=== PATIENT | female | born 1955 | race Caucasian/White ===

== ENCOUNTER → 2020-02-16 13:00 | Outpatient (CLI) | payer BC, SELFPAY ==
--- NOTE | ~2020-02-16 | CT_ITS ---
EXAMINATION: CT chest wo con DATE: 02/16/2020 13:16 INDICATION: Urinary Nodule no follow-up TECHNIQUE: Computed tomography (CT) of the chest was performed without intravenous contrast. The dose -length product was 305.70 mGy-cm. Automated exposure control and iterative reconstruction technique were employed. COMPARISON: None FINDINGS: Heart size normal. Moderate size hiatal hernia. There is a complex predominantly hypodense 2.7 cm left thyroid mass recommend correlation with ultrasound. There are thyroid calcifications. No thoracic lymphadenopathy. No significant pleural or pericardial effusion. There are gallstones. No fo abdirizak airspace consolidation. There is a 6 mm left lower lobe nodule. There is a sclerotic lesion of th e right humeral head, likely benign bone island. Mild thoracic spondylosis. IMPRESSION: 1. Left lower lobe nodule measuring 6 mm, probably benign. Follow-up low dose CT in 6 months recommen ded. 2: Complex hypodense 2.7 cm left thyroid mass. Correlation with ultrasound recommended. 3: Cholelithiasis. 4: Moderate size hiatal hernia. Reviewed, dictated and finalized at location A. IMPRESSION: 1. Left lower lobe nodule measuring 6 mm, probably benign. Follow-up low dose C T in 6 months recommended. 2: Complex hypodense 2.7 cm left thyroid mass. Correlation with ultrasound yulissa mmended. 3: Cholelithiasis. 4: Moderate size hiatal hernia.
== END ==
PROVIDERS: PCP Family Medicine; Visit Provider Physician Assistant
DX: R91.1 Solitary pulmonary nodule (principal); E07.9 Disorder of thyroid, unspecified; K80.20 Calculus of gallbladder without cholecystitis without obstruction; K44.9 Diaphragmatic hernia without obstruction or gangrene
CPT/HCPCS: 71250

== ENCOUNTER → 2020-02-19 14:25 | Outpatient (CLI) | payer BC, SELFPAY ==
--- NOTE | ~2020-02-19 | US_ITS ---
EXAMINATION: US thyroid DATE: 02/19/2020 14:56 INDICATION: Disorder of thyroid, unspecified. TECHNIQUE: Multiple ultrasound images of the thyroid were obtained. COMPARISON: Chest CT 02/16/2020 FINDINGS: The right thyroid lobe measures 5.0 x 1.2 x 1.4 cm. The left thyroid lobe measures 4.1 x 1.4 x 1.4 c m. Inferior to left thyroid lobe, there is a 3.9 x 2.9 x 2.4 cm predominantly solid hypoechoic mass. The CT demonstrates areas of calcification. IMPRESSION: 1. 3.9 cm mass inferior to left thyroid lobe that is most likely a thyroid nodule. Ultrasound-guided fine-needle aspiration is recommended. Reviewed, dictated and finalized at location A. IMPRESSION: 1. 3.9 cm mass inferior to left thyroid lobe that is most likely a thyroid nodu le. Ultrasound-guided fine-needle aspiration is recommended.
== END ==
PROVIDERS: PCP Family Medicine; Visit Provider Physician Assistant
DX: E07.9 Disorder of thyroid, unspecified (principal)
CPT/HCPCS: 76536

== ENCOUNTER 2020-03-15 13:00 | Outpatient (CLI) | payer BC, SELFPAY ==
--- NOTE | ~2020-03-15 | US_ITS ---
EXAMINATION: US FNA w image guidance DATE: 03/15/2020 14:11 INDICATION: Nontoxic single thyroid nodule. TECHNIQUE: The procedure and its benefits, risks, and benefits were discussed with the patient. Risks specifical ly discussed included bleeding. The patient verbalized understanding of the risks and agreed to proce ed. The neck was prepped and draped in the usual sterile manner. 1% lidocaine was used for local ane sthesia. 5 passes were made with a 25G needle into the lesion. Appropriate needle location was docu mented with continuous sonographic guidance. There were no immediate complications. The patient unde rstood to call the ordering physician for results after a week and a half and verbalized that underst anding. FINDINGS: Grayscale ultrasound images demonstrate needles advanced into a 3.9 cm left thyroid nodule for biopsy . IMPRESSION: 1. Ultrasound-guided fine needle aspiration of a left thyroid nodule. Reviewed, dictated and finalized at location A. 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
== END 2020-03-15 13:01 | disposition home or self-care (01) ==
PROVIDERS: PCP Family Medicine; Visit Provider Physician Assistant
DX: E04.1 Nontoxic single thyroid nodule (principal)
CPT/HCPCS: 10005; 88173; 88305

== ENCOUNTER 2020-06-27 10:29 | Outpatient (CLI) | payer BC, SELFPAY | END 2020-06-27 10:30 | disposition home or self-care (01) | LOC: ANHCOVIDVC 10:29 | PROVIDERS: PCP Family Medicine | DX: Z23 Encounter for immunization (principal) | CPT/HCPCS: 0001A; 91300 ==

== ENCOUNTER 2020-07-18 10:30 | Outpatient (CLI) | payer BC, SELFPAY | END 2020-07-18 10:31 | disposition home or self-care (01) | LOC: ANHCOVIDVC 10:30 | PROVIDERS: PCP Family Medicine | DX: Z23 Encounter for immunization (principal) | CPT/HCPCS: 0002A; 91300 ==

== ENCOUNTER → 2020-10-18 14:26 | Outpatient (CLI) | payer BC, SELFPAY ==
--- NOTE | ~2020-10-18 | MR_ITS ---
EXAMINATION: MR knee LT wo con DATE: 10/18/2020 15:54 INDICATION: Left knee pain TECHNIQUE: Magnetic resonance imaging (MRI) of the left knee was performed without intravenous contra st. Sequences included coronal PD-weighted FSE, coronal PD-weighted FS FSE, sagittal T2-weighted FSE , sagittal PD-weighted FS FSE and axial PD weighted fat saturated FSE. COMPARISON: 02/15/2020 FINDINGS: Medial compartment: There is fraying along the inner free edge of the anterior and posterior horns of the medial meniscus . Partial-thickness chondral ulceration with relatively smooth chondral surface along the anterior to central weightbearing medial femoral condyle. Cartilage along the medial tibial plateau is relativel y preserved. Small marginal osteophytes are present. Lateral compartment: Lateral meniscus is normal. Articular cartilage is normal. Patellofemoral compartment: Additional chondral ulceration involving greater than 50% the cartilage thickness at the medial correa lar facet, patellar apical ridge and medial side of the lateral facet. There is underlying mild subar ticular edema at the superomedial aspect of the lateral facet. Trochlear cartilage is relatively pres erved. Small marginal osteophytes. Ligaments and tendons: Anterior and posterior cruciate ligaments are normal. The medial collateral ligament and fibular gela ateral ligament complex are normal. Mild distal quadriceps and proximal patellar tendinopathy. Small enthesophytes at the patellar insertion of the distal quadriceps tendon. The visualized medial and la teral hamstring tendons as well as the iliotibial band are normal. Fluid: Minimal left knee joint effusion at the suprapatellar pouch. No loose osteochondral bodies identified . Small Garcia's cyst measuring 5.5 cm in craniocaudal length and up to 1.4 x 0.7 cm in maximal transa xial dimensions. Osseous/other: There is mild red marrow reexpansion the distal metadiaphyseal region of the distal femur and proxima l tibia. No fracture or pathologic marrow replacing process. IMPRESSION: 1. Mild fraying along the inner free edge of the anterior and posterior horns of the medial meniscus. 2. 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 3. Mild tendinopathy at the patellar insertions of the distal quadriceps and proximal patellar tendon s. 4. Small Garcia's cyst. Reviewed, dictated and finalized at location A. IMPRESSION: 1. Mild fraying along the inner free edge of the anterior and posterior horns o f the medial meniscus. 2. Mild medial and patellofemoral osteoarthritis with moderate grade chondromal acia at the former and moderate to high-grade chondromalacia at the latter. 3. Mild tendinopathy at the patellar insertions of the distal quadriceps and pr oximal patellar tendons. 4. Small Garcia's cyst.
== END ==
PROVIDERS: PCP Family Medicine; Visit Provider Orthopaedic Surgery
DX: M25.562 Pain in left knee (principal); M17.12 Unilateral primary osteoarthritis, left knee; M22.42 Chondromalacia patellae, left knee; M23.312 Other meniscus derangements, anterior horn of medial meniscus, left knee; M76.52 Patellar tendinitis, left knee; M71.22 Synovial cyst of popliteal space [Baker], left knee
CPT/HCPCS: 73721

== ENCOUNTER 2020-11-23 10:25 | Outpatient (CLI) | payer BC, SELFPAY ==
--- NOTE | 2020-11-23 10:29 | ECG_ITS ---
Measurements Intervals [place] Rate: 72 P: 14 TN: 144 QRS: 15 QRSD: 90 T: 19 QT: 394 QTc: 432 Interpretive Statements SINUS RHYTHM NORMAL ECG Electronically Signed On 11-23-2020 10:50:48 CDT by Akhil Díaz D.O.
[2020-11-23 11:21] LABS: Anion Gap 10 mmol/L (8-16); Blood Urea Nitrogen 8 mg/dL (7-17); Carbon Dioxide 26 mmol/L (22-30); Chloride 100 mmol/L (98-107); Estimated Glomerular Filt Rate > 60; Glucose 238 mg/dL (65-110); Sodium 136 mmol/L (137-145)
== END 2020-11-23 10:26 | disposition home or self-care (01) ==
LOC: ANHSURGERY 10:29
PROVIDERS: Anesthesiology; PCP Family Medicine; Visit Provider Orthopaedic Surgery
DX: Z01.818 Encounter for other preprocedural examination (principal); E11.9 Type 2 diabetes mellitus without complications
CPT/HCPCS: 36415; 80048; 93005

== ENCOUNTER 2020-11-25 01:55 | Day surgery (SDC) | payer BC, SELFPAY ==
[2020-11-21 14:57] VITALS: BMI 31.1
[2020-11-25] VITALS (8 sets, daily range): BP systolic 114–139; BP diastolic 63–73; PULSE 74–100; RESP 14–20; TEMP 36.5–37.2; O2SAT 93–100
--- NOTE | 2020-11-25 07:27 | WPDHPUPDATE1 ---
History and Physical Update Update Date/Time: 11/25/20 07:27 History and Physical has been reviewed, including an updated exam of the patient. There are NO changes in the patient's condition. Risks, benefits, and alternatives have been discussed and questions answered. Patient agrees to proceed with procedure.
--- NOTE | 2020-11-25 08:31 | WPDANESEPPF ---
Anes - Initial Pre Proc Eval Procedure: Operation Date: 11/25/20 11:30 Proposed Procedures p Left Knee Arthroscopy, Medial Meniscectomy, Proceed As Indicated - Jd Santos MD Date/Time: 11/25/20 08:31 Surgeon: Jd Santos MD Pre Op Diagnosis: medial meniscus tear left knee Patient Data Age: 65 Gender: F Height: 1.65 m Weight: 85 kg Allergies Allergy/AdvReac Type Severity Reaction Status Date / Time No Known Allergies Allergy Verified 11/25/20 09:52 Home Medications Medication Instructions Recorded Confirmed Type multivitamin 1 cap PO DAILY 04/13/19 11/25/20 History omeprazole 20 mg capsule,delayed 20 mg PO DAILY 04/13/19 11/25/20 History release ascorbate calcium-bioflavonoid 1 tablet PO AC 05/04/19 11/25/20 History [Isabel-C with Bioflavonoids] aspirin 81 mg PO DAILY 05/04/19 11/25/20 History blood-glucose meter #1 ea 02/11/20 11/25/20 Rx atorvastatin 20 mg tablet 20 mg PO DAILY #90 tablet 05/13/20 11/25/20 Rx metformin 500 mg tablet,extended 1,000 mg PO BID #180 tablet 05/13/20 11/25/20 Rx release 24 hr trazodone 100 mg tablet 200 mg PO HS #180 tablet 05/13/20 11/25/20 Rx venlafaxine 150 mg 150 mg PO DAILY #90 cap 05/13/20 11/25/20 Rx capsule,extended release 24 hr lisinopril 10 1 tablet PO DAILY #30 tablet 06/09/20 11/25/20 Rx mg-hydrochlorothiazide 12.5 mg tablet dulaglutide 1.5 mg/0.5 mL 1.5 mg SUBCUT WEEKLY 90 Days #6.5 10/10/20 11/25/20 Rx subcutaneous pen injector ml magnesium 200 mg tablet 400 mg PO BID tablet 10/10/20 11/25/20 History pen needle, diabetic 32 gauge x #100 ea 10/10/20 11/25/20 Rx /32 blood sugar diagnostic #300 ea 10/25/20 11/25/20 Rx insulin glargine U-300 conc 18 unit SUBCUT QHS 11/21/20 11/25/20 History [Toujeo Max U-300 SoloStar] Patient hx anesthesia problems: none Family hx anesthesia problems: none [facility] Past Medical History Medical History Arthritis Depression Diabetes GERD (gastroesophageal reflux disease) H/O: HTN (hypertension) Hearing loss Hernia (~2017) High cholesterol HTN (hypertension) Obesity Type 2 diabetes mellitus Vision loss Surgical History Surgical History H/O hemorrhoidectomy H/O hernia repair H/O lateral meniscus repair of left knee H/O lateral meniscus repair of right knee H/O: hysterectomy History of delivery History of foot surgery right foot History of hand surgery right foot Hx of laparoscopic gastric banding Family History Family History Father Family history of elevated blood lipids Family history of heart disease in male family member before age 55 Family history of cardiovascular disease Family history of arthritis Sibling Family history of malignant neoplasm Family history of malignant neoplasm of breast in first degree relative Family history of obesity Mother Family history of atrial fibrillation Family history of malignant neoplasm of breast in first degree relative Family history of osteoarthritis Unknown Diabetes mellitus Heart disease Hypertension Cancer Grandparent Cerebrovascular accident Other Family history of juvenile rheumatoid arthritis Social History Social History Smoking status: Former smoker Smoking end date: 04/22/00 Additional smoking assessment comments: smoked 7 years ,recreational cigarette smoker Alcohol intake: current Alcohol use details: social Living arrangements: with family 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
[2020-11-25] MEDS: ACETAMINOPHEN 500 MG TABLET 1000 MG PO (10:07)
[2020-11-25] MEDS: KETOROLAC 15 MG/ML VIAL (*BKC) IV PUSH (10:11)
[2020-11-25] MEDS: LACTATED RINGERS 1,000 ML 30 ML IV CONT ×2 (10:11→12:20)
[2020-11-25 10:17] LABS: Glucose Point of Care 262 mg/dl (65-105)
[2020-11-25] MEDS: ceFAZolin 2 GM/D5W 50 ML 2 GM/50 ML BAG IVPB (11:19)
[2020-11-25] MEDS: BUPIVACAINE/EPINEPHRINE 0.5% 30 ML VIAL INFILTRATE (11:38)
--- NOTE | 2020-11-25 12:28 | W.PM.PROC2 ---
Procedure Note - Detailed Date of Procedure 11/25/20 Pre-op Diagnosis Medial meniscus tear left knee Post-op Diagnosis same Procedure Performed Arthroscopic partial medial meniscectomy, left knee. Surgeon Jd Santos MD Senior Branch Manager Antoinette Schmitz PA-C Anesthesia general Findings Complex medial meniscus tear. Good remaining tissue. Grade 2 chondromalacia femur and tibia medially. Grade 2 patella. Grade 1 trochlea. Lateral compartment normal. ACL intact. Description of Procedure The patient was identified and the surgical site confirmed and signed in the preoperative holding area. Antibiotics were started per protocol. She was brought to the operative room and transferred to the OR table. A general anesthetic was administered. Supine position with the operative lower extremity position in the leg cai after placement of a well padded tourniquet. The leg support was lowered and the contralateral limb was supported with a soft bolster. The knee was prepped and draped in the usual sterile fashion. A time-out was performed. The portal sites were marked and infiltrated with 0.5% Marcaine 20 mL. The limb was exsanguinated and the tourniquet inflated to 300 mL Hg. Standard inferolateral and inferomedial portals were established. Inflow was obtained with the saline pump. The camera was introduced. Diagnostic inspection of the joint was accomplished. The meniscus was debrided with the arthroscopic shaver and punches until stable. The arthroscopic instruments were removed. The tourniquet released and wounds closed with subcutaneous 3-0 Monocryl absorbable suture. Steri strips and a sterile dressing were applied. A light elastic wrap was placed. The patient was extubated and brought to the recovery room in stable condition. Estimated Blood Loss -5.0 Tourniquet Time 25 Drains No Complications No immediate complications Condition stable Disposition PACU
[2020-11-25 12:33] LABS: Glucose Point of Care 203 mg/dl (65-105)
== END 2020-11-25 14:14 | disposition home or self-care (01) ==
PROVIDERS: PCP Family Medicine; Visit Provider Orthopaedic Surgery
PROC: (CPT 29870; principal; 2020-11-25 11:30)
DX: M23.332 Other meniscus derangements, other medial meniscus, left knee (principal); M94.262 Chondromalacia, left knee; E11.9 Type 2 diabetes mellitus without complications; I10 Essential (primary) hypertension; E78.00 Pure hypercholesterolemia, unspecified; K21.9 Gastro-esophageal reflux disease without esophagitis; F32.9 Major depressive disorder, single episode, unspecified; Z87.891 Personal history of nicotine dependence; E66.9 Obesity, unspecified; Z68.32 Body mass index [BMI] 32.0-32.9, adult; Z79.84 Long term (current) use of oral hypoglycemic drugs; Z79.82 Long term (current) use of aspirin; Z79.4 Long term (current) use of insulin
CPT/HCPCS: 29881; 82948; A9270; J0690; J1100; J1885; J2250; J2405; J2704; J3010; J7120

== ENCOUNTER → 2021-04-03 12:53 | Outpatient (CLI) | payer BC, SELFPAY ==
--- NOTE | ~2021-04-03 | CT_ITS ---
EXAMINATION: CT diagnostic chest wo con DATE: 04/03/2021 13:45 INDICATION: Solitary pulmonary nodule follow-up TECHNIQUE: Computed tomography (CT) of the chest was performed without intravenous contrast. The dose -length product was 615.65 mGy-cm. Automated exposure control and iterative reconstruction technique were employed. COMPARISON: CT dated 02/16/2020 FINDINGS: No thoracic lymphadenopathy. Heart size normal. Moderate size hiatal hernia. No significant pleural or pericardial effusion. No significant change to appearance of left thyroid mass with heter ogeneous appearance and peripheral calcifications measuring up to 2.8 cm. This was previously biopsy- proven benign. Visualized aspects of the upper abdomen are unremarkable. Stable 6 mm left lower lobe nodule, image 73. No endobronchial lesions. There is a 2 mm right lower lobe nodule, image 62. Mild t horacic spondylosis. No focal lytic or blastic lesions. IMPRESSION: 1. Probable benign appearing lung nodules, largest in the left lower lobe measuring 6 mm without sign ificant change, likely benign. Follow-up low dose CT chest in 12 months recommended. 2: Moderate size hiatal hernia. Reviewed, dictated and finalized at location A. 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 Probable benign appearing lung nodules, largest in the left lower lobe measu ring 6 mm without significant change, likely benign. Follow-up low dose CT ches t in 12 months recommended. 2: Moderate size hiatal hernia.
== END ==
PROVIDERS: PCP Family Medicine; Visit Provider Physician Assistant
DX: R91.1 Solitary pulmonary nodule (principal); K44.9 Diaphragmatic hernia without obstruction or gangrene
CPT/HCPCS: 71250

== ENCOUNTER → 2021-04-07 14:30 | Outpatient (CLI) | payer BC, SELFPAY ==
--- NOTE | ~2021-04-07 | MM_ITS ---
EXAMINATION: MM screening [facility] BI w kylie HISTORY: Screening TECHNIQUE: Craniocaudal and mediolateral oblique 3-D tomosynthesis images were obtained and synthetic 2-D images were generated. CAD analysis was submitted and interpreted. COMPARISON: No prior mammogram is available for comparison at this institution. BREAST PARENCHYMAL COMPOSITION: Breast composed of scattered areas of fibroglandular density. FINDINGS: There is no evidence of suspicious mass, calcification, or architectural distortion to sugg est malignancy in either breast. There has been no suspicious interval change. IMPRESSION: 1. No mammographic evidence of malignancy. 2. Recommend routine screening mammography in one year. BI-RADS Category 1: Negative Reviewed, dictated and finalized at location A. STOP CHECKER
== END ==
PROVIDERS: Visit Provider Family Medicine
DX: Z12.31 Encounter for screening mammogram for malignant neoplasm of breast (principal)
CPT/HCPCS: 77063; 77067

== ENCOUNTER 2021-08-11 01:12 | Day surgery (SDC) | payer BC, MEDICARE, SELFPAY ==
[2021-08-11 07:50] VITALS: BMI 32.2
[2021-08-11] MEDS: LACTATED RINGERS 1,000 ML 150 ML IV CONT (08:11)
--- NOTE | 2021-08-11 08:12 | WPDGICN ---
Assessment and Plan Assessment and plan (1) History of colon polyps: Code(s): Z86.010 - Personal history of colonic polyps Status: Acute Assessment and Plan: Patient has history of adenomatous colon polyp removed from the colon and 1017. Plan is for surveillance colonoscopy now and at intervals in the future. Further recommendations will be given after endoscopy. GI Consult Note Consult date/time: 08/11/21 08:12 HPI: Avelina Kemp is a 66 year old female Presents for screening colonoscopy. Patient has a history of adenomatous colon polyps at the time of last colonoscopy 2016. Patient presents today for screening colonoscopy she reports that her current weight appetite bowel movements are normal. Patient denies abdominal pain. She has had no bleeding. Family history is noncontributory. Review of Systems Review of Systems: All systems reviewed & are unremarkable except as noted in HPI and below PMFSH Past Medical History Medical History (Updated 08/11/21 @ 08:13 by Forrest Turner MD) Arthritis Depression Diabetes GERD (gastroesophageal reflux disease) H/O: HTN (hypertension) Hearing loss Hernia (~2016) High cholesterol HTN (hypertension) Obesity Type 2 diabetes mellitus Vision loss Surgical History Surgical History H/O hemorrhoidectomy H/O hernia repair H/O lateral meniscus repair of left knee H/O lateral meniscus repair of right knee H/O: hysterectomy History of delivery History of foot surgery right foot History of hand surgery right foot History of meniscectomy of left knee (~11/25/20) Medial (Arthroscopic) Hx of laparoscopic gastric banding Family History Family History Father Family history of elevated blood lipids Family history of heart disease in male family member before age 55 Family history of cardiovascular disease Family history of arthritis Sibling Family history of malignant neoplasm Family history of malignant neoplasm of breast in first degree relative Family history of obesity Mother Family history of atrial fibrillation Family history of malignant neoplasm of breast in first degree relative Family history of osteoarthritis Unknown Diabetes mellitus Heart disease Hypertension Cancer Grandparent Cerebrovascular accident Other Family history of juvenile rheumatoid arthritis Social History Social History Years smoked: 5 Smoking status: Former smoker Tobacco type: cigarettes Smoking end date: 04/22/00 Additional smoking assessment comments: smoked 7 years ,recreational cigarette smoker Alcohol intake: never Alcohol use details: social Substance use: never Substance use type: does not use Living arrangements: with family 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 Gender identity (if verbalized by the patient): Female Spiritual care concerns: No Meds Home Medications and Allergies Home Medications Medication Instructions Recorded Confirmed Type multivitamin 1 cap PO DAILY 04/13/19 08/11/21 History omeprazole 20 mg capsule,delayed 20 mg PO DAILY 04/13/19 08/11/21 History release magnesium 200 mg tablet 400 mg PO BID tablet 10/10/20 08/11/21 History pen needle, diabetic 32 gauge x #100 ea 10/10/20 08/11/21 Rx blood sugar diagnostic #300 ea 10/25/20 08/11/21 Rx atorvastatin 20 mg tablet 20 mg PO DAILY #90 tablet 03/20/21 08/11/21 Rx lisinopril 10 1 tablet PO DAILY #90 tablet 03/20/21 08/11/21 Rx mg-hydrochlorothiazide 12.5 mg tablet venlafaxine 150 mg 150 mg PO DAILY #90 cap 03/20/21 08/11/21 Rx capsule,extended release 24 hr metformin 500 mg tablet,extended 1,000 mg PO BID #360 tablet 04/11/21 08/11/21 Rx release 24 hr dulaglutide 3 mg/0.5 mL 3 mg SUBCUT WEEKLY 90 Days #6.5 ml 05/03/2107/22
[2021-08-11 08:14] LABS: Glucose Point of Care 217 mg/dl (65-105)
--- NOTE | 2021-08-11 08:42 | WPDANESEPPF ---
Anes - Initial Pre Proc Eval Procedure: Operation Date: 08/11/21 09:00 Proposed Procedures p Screening Colonoscopy - Forrest Turner MD Date/Time: 08/11/21 08:42 Surgeon: Forrest Turner MD Pre Op Diagnosis: hx of colon polyps Patient Data Age: 66 Gender: F Height: 1.68 m Weight: 90.6 kg Allergies Allergy/AdvReac Type Severity Reaction Status Date / Time No Known Allergies Allergy Verified 08/11/21 08:01 Home Medications Medication Instructions Recorded Confirmed Type multivitamin 1 cap PO DAILY 04/13/19 08/11/21 History omeprazole 20 mg capsule,delayed 20 mg PO DAILY 04/13/19 08/11/21 History release magnesium 200 mg tablet 400 mg PO BID tablet 10/10/20 08/11/21 History pen needle, diabetic 32 gauge x #100 ea 10/10/20 08/11/21 Rx /32 blood sugar diagnostic #300 ea 10/25/20 08/11/21 Rx atorvastatin 20 mg tablet 20 mg PO DAILY #90 tablet 03/20/21 08/11/21 Rx lisinopril 10 1 tablet PO DAILY #90 tablet 03/20/21 08/11/21 Rx mg-hydrochlorothiazide 12.5 mg tablet venlafaxine 150 mg 150 mg PO DAILY #90 cap 03/20/21 08/11/21 Rx capsule,extended release 24 hr metformin 500 mg tablet,extended 1,000 mg PO BID #360 tablet 04/11/21 08/11/21 Rx release 24 hr dulaglutide 3 mg/0.5 mL 3 mg SUBCUT WEEKLY 90 Days #6.5 ml 05/03/21 08/11/21 Rx subcutaneous pen injector insulin glargine U-300 conc 300 18 unit SUBCUT QHS 90 Days #5.4 ml 05/03/21 08/11/21 Rx unit/mL (3 mL) subcutaneous pen glipizide 5 mg tablet, extended 5 mg PO BID 90 Days #180 tablet 06/29/21 08/11/21 Rx release 24 hr trazodone 100 mg tablet 200 mg PO HS #180 tablet 06/30/21 08/11/21 Rx azithromycin 250 mg tablet See Rx Instructions PO .COMPLEX #6 08/03/21 08/11/21 Rx tablet Laboratory Tests 08/11/21 08:07 POC Capillary Glucose 217 mg/dl H mg/dl (65-105) Patient hx anesthesia problems: none Family hx anesthesia problems: none Results Review: All pre-operative results and documents have been reviewed as part of the pre-operative evaluation. [facility] Past Medical History Medical History (Updated 08/11/21 @ 08:13 by Forrest Turner MD) Arthritis Depression Diabetes GERD (gastroesophageal reflux disease) H/O: HTN (hypertension) Hearing loss Hernia (~2017) High cholesterol HTN (hypertension) Obesity Type 2 diabetes mellitus Vision loss Surgical History Surgical History H/O hemorrhoidectomy H/O hernia repair H/O lateral meniscus repair of left knee H/O lateral meniscus repair of right knee H/O: hysterectomy History of delivery History of foot surgery right foot History of hand surgery right foot History of meniscectomy of left knee (~11/25/20) Medial (Arthroscopic) Hx of laparoscopic gastric banding Family History Family History Father Family history of elevated blood lipids Family history of heart disease in male family member before age 55 Family history of cardiovascular disease Family history of arthritis Sibling Family history of malignant neoplasm Family history of malignant neoplasm of breast in first degree relative Family history of obesity Mother Family history of atrial fibrillation Family history of malignant neoplasm of breast in first degree relative Family history of osteoarthritis Unknown Diabetes mellitus Heart disease Hypertension Cancer Grandparent Cerebrovascular accident Other Family history of juvenile rheumatoid arthritis Social History Social History Years smoked: 5 Smoking status: Former smoker Tobacco type: cigarettes Smoking end date: 04/22/00 Additional smoking assessment comments: smoked 7 years ,recreational cigarette smoker Alcohol intake: never Alcohol use details: social Substance use: never Substance use type: does not use Living a
[2021-08-11 09:09] VITALS: BP 123/62; PULSE 88; RESP 24; O2SAT 97
[2021-08-11 09:19] VITALS: BP 134/69; PULSE 83; RESP 25; O2SAT 97
[2021-08-11 09:28] LABS: Glucose Point of Care 172 mg/dl (65-105)
[2021-08-11 09:29] VITALS: BP 123/58; PULSE 79; RESP 21; O2SAT 97
== END 2021-08-11 09:32 | disposition home or self-care (01) ==
PROVIDERS: PCP Family Medicine; Visit Provider Internal Medicine Gastroenterology
PROC: 0DJD8ZZ Inspection of Lower Intestinal Tract, Via Natural or Artificial Opening Endoscopic (ICD-10-PCS; CPT 45378; principal; 2021-08-11 09:00)
DX: Z12.11 Encounter for screening for malignant neoplasm of colon (principal); Z86.010 Personal history of colon polyps; K64.8 Other hemorrhoids; K57.30 Diverticulosis of large intestine without perforation or abscess without bleeding; Z79.84 Long term (current) use of oral hypoglycemic drugs; Z79.4 Long term (current) use of insulin; M19.90 Unspecified osteoarthritis, unspecified site; I10 Essential (primary) hypertension; K21.9 Gastro-esophageal reflux disease without esophagitis; E78.00 Pure hypercholesterolemia, unspecified; E11.9 Type 2 diabetes mellitus without complications; F32.9 Major depressive disorder, single episode, unspecified; Z87.891 Personal history of nicotine dependence; E66.9 Obesity, unspecified; Z68.32 Body mass index [BMI] 32.0-32.9, adult
CPT/HCPCS: 45378; 82948; J2704; J7120

== ENCOUNTER → 2021-10-13 15:33 | Outpatient (CLI) | payer BC, SELFPAY ==
--- NOTE | ~2021-10-13 | US_ITS ---
EXAMINATION: US thyroid DATE: 10/13/2021 15:53 INDICATION: Thyroid nodule. History of prior negative FNA. TECHNIQUE: Multiple ultrasound images of the thyroid were obtained. COMPARISON: 02/19/2020, CT chest 04/03/2021. FINDINGS: The right thyroid lobe measures 3.6 x 0.8 x 1.1 cm. The left thyroid lobe measures 4.2 x 1.5 x 1.2 c m. There is normal echotexture and echogenicity throughout the thyroid gland. Sub-5 mm cystic right lobe nodule, requires no additional follow-up or FNA. 3 cm left inferior lobe mixed cystic and solid hypoechoic nodule, with ill-defined margins, that is wider than tall, with peripheral calcifications. No significant interval size change given interval change in technique. No suspicious interval morph ologic change. Normal vascular flow is present in the thyroid gland. IMPRESSION: 1. 3 cm left inferior lobe nodule, with prior negative FNA. No concerning interval growth or suspicio us interval change. Reviewed, dictated and finalized at location K. IMPRESSION: 1. 3 cm left inferior lobe nodule, with prior negative FNA. No concerning inter nanette growth or suspicious interval change.
== END ==
PROVIDERS: PCP Nurse Practitioner Family; Visit Provider Nurse Practitioner Family
DX: E04.1 Nontoxic single thyroid nodule (principal)
CPT/HCPCS: 76536

== ENCOUNTER 2022-01-08 10:07 | Outpatient (CLI) | payer BC, SELFPAY ==
--- NOTE | 2022-01-08 11:10 | ECG_ITS ---
Measurements Intervals Cunningham Rate: 83 P: 17 IL: 133 QRS: 21 QRSD: 89 T: 23 QT: 361 QTc: 425 Interpretive Statements SINUS RHYTHM LOW QRS VOLTAGE IN PRECORDIAL LEADS CONSIDER INFERIOR INFARCT, AGE INDETERMINATE BASELINE ARTIFACT- I, II, AVR, AVL, AVF, V6 ABNORMAL ECG COMPARED TO ECG 11/23/2020 10:40:36 NO SIGNIFICANT CHANGES Electronically Signed On 01-08-2022 13:53:11 CDT by Akhil Díaz D.O.
[2022-01-08 11:35] LABS: Basophils Absolute Auto 0.1 K/mm3 (0.0-0.1); Basophils Percent Auto 0.6 % (0.2-1.2); Eosinophils Absolute Auto 0.3 K/mm3 (0-0.3); Eosinophils Percent Auto 2.2 % (0-4.4); Hematocrit 37.5 % (37.0-47.0); Hemoglobin 10.9 g/dL (12.0-15.0); Immature Granulocyte Absolute 0.06 K/mm3 (0.00-0.031); Immature Granulocyte Percent A 0.5 % (0-0.5); Lymphocytes Absolute Auto 2.87 K/mm3 (0.9-3.2); Lymphocytes Percent Auto 23.5 % (18.3-44.2); Mean Corpuscular HGB Conc 29.1 g/dl (32-36); Mean Corpuscular Hemoglobin 21.6 pg (26-34); Mean Corpuscular Volume 74.3 fl (80-100); Mean Platelet Volume 10.9 fl (7.4-10.4); Neutrophils Percent Auto 65.2 % (45.5-73.1); Platelet Count Result 276 k/mm3 (150-375); Red Blood Count 5.05 M/mm3 (4.2-5.4); Red Cell Distribution Width 19.1 % (11.5-14.5); White Blood Count 12.2 K/mm3 (4.5-10.0)
[2022-01-08 11:46] LABS: Anion Gap 15 mmol/L (8-16); Blood Urea Nitrogen 12 mg/dL (7-17); Carbon Dioxide 27 mmol/L (22-30); Chloride 97 mmol/L (98-107); Estimated Glomerular Filt Rate > 60; Glucose 199 mg/dL (65-110); Potassium 3.9 mmol/L (3.4-5.0); Sodium 139 mmol/L (137-145)
[2022-01-08 13:13] LABS: Anisocytosis 1+ (NORMAL); Hypochromasia 1+ (NORMAL); Platelet Estimate Adequate (Adequate)
== END 2022-01-08 10:08 | disposition home or self-care (01) ==
PROVIDERS: Anesthesiology; PCP Family Medicine; Visit Provider Orthopaedic Surgery
DX: Z01.818 Encounter for other preprocedural examination (principal); I10 Essential (primary) hypertension; E11.9 Type 2 diabetes mellitus without complications; M17.12 Unilateral primary osteoarthritis, left knee; R94.31 Abnormal electrocardiogram [ECG] [EKG]
CPT/HCPCS: 36415; 80048; 85025; 93005

== ENCOUNTER 2022-02-01 01:25 | Day surgery (SDC) | payer BC, SELFPAY ==
[2022-01-08 10:26] VITALS: BMI 34.4
--- NOTE | 2022-01-08 10:55 | PC.NURSE ---
Report to the Outpatient Waiting Room, entrance under the green pavilion located off [facility], at time 0600 on date __02/01/22 . OR Time: _729 . Time changes happen often and if your time is changed the preop area will call you the afternoon before. - You and your visitor will be asked to self-screen and do not enter if you have any COVID symptoms. - Only one visitor and NO children visitors are allowed at this time. - The patient visitor is requested to leave or wait in car when not with patient due to restrictions. - A mask is required within the hospital. Patients may have clear liquids (water, carbonated beverages, clear teas, apple juice) until 3 hours prior to surgery with a maximum of 20 ounces. - No food from midnight until time of surgery - Infants may have breast milk until 4 hours before surgery, formula 6 hours prior to surgery. - Children will be allowed to drink immediately following surgery. If applicable, please bring a bottle or sippy cup to assist with drinking. Juice, water, soda, and popsicles are readily available. For infants on formula, please bring formula the day of surgery. Pacifiers are allowed. Take the following medications with a SIP of water the morning of surgery: ___VENLAFAXINE Medications to discontinue per physician __ASPIRIN 7 DAYS PRE OP. ALL VITAMINS AND SUPPLEMENTS 3 DAYS PRE OP Date to take last dose_ASPIRIN 01/24/22 ALL VIT/SUPP 01/28/22 Please no make-up, nail arabic, hairspray, perfume, deodorant, or body powder the day of surgery. No jewelry (including any body piercings) or valuables the day of surgery, leave them at home. Please take a shower or bath the night before, or the morning of, surgery with an antibacterial soap. Wear comfortable, loose fitting clothing. Children are encouraged to wear pajamas. - Jewelry must be removed prior to entering the operating room. Rings and piercings that are not removed may be cut off. - The hospital will not accept responsibility for valuables. - Please leave all valuables, including medications, at home the day of surgery. If you are going home after surgery, a licensed diesel pile driver operator must drive you home. - NO public transportation without another adult. - We recommend that an adult stay with you for 24 hours following discharge. - We also recommend that you do not drive, make important decision, drink alcoholic beverages, or take any drugs that were not prescribed by your health care provider for at least 24 hours after your discharge time. For Pediatric surgeries, we recommend two adults accompany the child home (only one inside the building at this time). Follow any additional instructions given to you from your surgeon. If you or anyone in your household have experienced Covid symptoms in the past week, please notify your surgeon or the nurse liaison at the phone number below for possible testing. VERBAL AND WRITTEN instructions given to __PATIENT and asked if any additional questions and then verbalized understanding. Patient advised to call surgeon office or pre surgery nurse liaison [phone] if any additional questions.
[2022-01-08 11:10] VITALS: BP 144/67; PULSE 82; RESP 18; TEMP 37.3; O2SAT 98
[2022-02-01] VITALS (13 sets, daily range): BP systolic 104–140; BP diastolic 46–61; PULSE 72–92; RESP 14–20; TEMP 36.4–36.8; O2SAT 95–100
--- NOTE | ~2022-02-01 | XR_ITS ---
EXAMINATION: XR knee LT 2V DATE: 02/01/2022 09:50 INDICATION: Left knee arthroplasty. Postop. TECHNIQUE: 2 views of left knee were obtained. COMPARISON: Left knee radiographs 09/12/2018 FINDINGS: There is a medial compartment arthroplasty in near-anatomic alignment. No fracture. There i s mild osteoarthritis of lateral and patellofemoral compartments characterized by tiny osteophytes. N o knee joint effusion. There is gas in the soft tissues, consistent with recent surgery. IMPRESSION: 1. Medial compartment arthroplasty in near-anatomic alignment. Reviewed, dictated and finalized at location A.
[2022-02-01] MEDS: ACETAMINOPHEN 500 MG TABLET 1000 MG PO (06:31)
[2022-02-01] MEDS: TRANEXAMIC ACID 1,000MG/ISO100 1,000 MG/100 ML BAG 200 MG IVPB (07:00)
[2022-02-01 07:03] LABS: White Blood Count 10.3 K/mm3 (4.5-10.0)
[2022-02-01 07:07] LABS: Glucose Point of Care 166 mg/dl (65-105)
--- NOTE | 2022-02-01 07:09 | WPDANESEPPF ---
Anes - Initial Pre Proc Eval Procedure: Operation Date: 02/01/22 07:30 Proposed Procedures p Left Partial Knee Arthroplasty - Jd Santos MD Date/Time: 02/01/22 07:09 Surgeon: Jd Santos MD Pre Op Diagnosis: Prim O A left Knee Patient Data Age: 66 Gender: F Height: 1.6 m Weight: 88.2 kg Last Vital Signs Temp 37.3 C 01/08/22 11:10 Pulse 82 01/08/22 11:10 Resp 18 01/08/22 11:10 BP 144/67 H 01/08/22 11:10 Pulse Ox 98 01/08/22 11:10 O2 Del Method Room Air 01/08/22 11:10 Allergies Allergy/AdvReac Type Severity Reaction Status Date / Time No Known Allergies Allergy Verified 02/01/22 06:27 Home Medications Medication Instructions Recorded Confirmed Type multivitamin 1 cap PO DAILY 04/13/19 02/01/22 History magnesium 200 mg tablet 400 mg PO BID 10/10/20 02/01/22 History blood sugar diagnostic (OneTouch #300 ea 10/25/20 01/22/22 Rx Verio test strips) lisinopril 10 1 tablet PO DAILY #90 tabs 03/20/21 02/01/22 Rx mg-hydrochlorothiazide 12.5 mg tablet dulaglutide 4.5 mg/0.5 mL 4.5 mg (0.5 mL) subcut WEEKLY 90 10/10/21 02/01/22 Rx subcutaneous pen injector days #6 mL (Trulicity) trazodone 100 mg tablet 200 mg PO HS #180 tabs 11/20/21 02/01/22 Rx venlafaxine 150 mg 150 mg PO DAILY #90 caps 11/20/21 02/01/22 Rx capsule,extended release 24 hr (Effexor XR) omeprazole 20 mg capsule,delayed 20 mg PO DAILY #90 caps 12/14/21 02/01/22 Rx release aspirin 81 mg tablet,delayed 81 mg PO DAILY 01/08/22 02/01/22 History release (Adult Low Dose Aspirin) atorvastatin 20 mg tablet 20 mg PO DAILY #90 tabs 01/09/22 02/01/22 Rx clotrimazole-betamethasone 1 1 applic topical BID PRN vaginal 01/11/22 02/01/22 Rx %-0.05 % topical cream irritation 2 weeks #45 grams metformin 500 mg tablet,extended 1,000 mg PO BID #360 tabs 01/11/22 02/01/22 Rx release 24 hr pen needle, diabetic 32 gauge x #100 ea 01/11/22 01/22/22 Rx 5/32 (BD Cass 2nd Gen Pen Needle) insulin glargine U-300 conc 300 20 unit (0.0667 mL) subcut QHS #6 01/31/22 02/01/22 Rx unit/mL (3 mL) subcutaneous pen mL (Toujeo Max U-300 SoloStar) Laboratory Tests 02/01/22 02/01/22 06:26 06:58 WBC 10.3 K/mm3 H K/mm3 (4.5-10.0) POC Capillary Glucose 166 mg/dl H mg/dl (65-105) Patient hx anesthesia problems: none Family hx anesthesia problems: none Results Review: All pre-operative results and documents have been reviewed as part of the pre-operative evaluation. [facility] Past Medical History Medical History Acute medial meniscus tear of left knee Acute non-recurrent maxillary sinusitis Arthritis Body mass index (BMI) 23 or greater (11/14/18) Body mass index (BMI) 35 or more (06/23/18) Cholelithiasis Colitis Depression Diabetes Essential hypertension Fatty (change of) liver, not elsewhere classified Folliculitis GERD (gastroesophageal reflux disease) H/O: HTN (hypertension) Hearing loss Hernia (~2017) High cholesterol History of colon polyps HTN (hypertension) Hypercholesterolemia Hypokalemia Incisional hernia, without obstruction or gangrene Internal prolapsed hemorrhoids Iron deficiency anemia, unspecified Lung nodule Major depressive disorder, single episode, unspecified Obesity Postmenopausal Pulmonary nodule Thyroid nodule 11-20 biopsy aspiration benign Tinea corporis Type 2 diabetes mellitus Viral upper respiratory tract infection Vision loss Surgical History Surgical History H/O hemorrhoidectomy H/O hernia repair H/O lateral meniscus repair of left knee H/O lateral meniscus repair of right knee H/O: hysterectomy History of delivery History of foot surgery right foot History of hand surgery right foot History of meniscectomy of left knee (~11/25/20) Medial (Arthroscopic) Hx of bariatric surgery Hx of hernia re
--- NOTE | 2022-02-01 07:22 | WPDHPUPDATE1 ---
History and Physical Update Update Date/Time: 02/01/22 07:22 History and Physical has been reviewed, including an updated exam of the patient. There are NO changes in the patient's condition. Risks, benefits, and alternatives have been discussed and questions answered. Patient agrees to proceed with procedure.
[2022-02-01] MEDS: ceFAZolin 2 GM/D5W 50 ML 2 GM/50 ML BAG IVPB ×2 (07:33→16:26)
[2022-02-01] MEDS: GENTAMICIN BONE CEMENT REFOBACIN 1 EACH TOPICAL (08:06)
[2022-02-01] MEDS: LACTATED RINGERS 1,000 ML 30 ML IV CONT ×2 (09:29)
[2022-02-01 09:41] LABS: Glucose Point of Care 172 mg/dl (65-105)
[2022-02-01] MEDS: fentaNYL CITRATE INJ (*CRX) 100 MCG/2 ML VIAL 25 MCG IV PUSH ×3 (10:00→10:10)
--- NOTE | 2022-02-01 11:15 | ADMGEN ---
This patient, Avelina Kemp, was admitted to 2 Medical Room 259-. Patient/family oriented to hospital policies and general routines including ID bracelet, bed and alarms, visiting hours, pain management, procedures, bathroom and other care routines, personal items, smoking policy, room service/diet, and visiting hours. Information on how to activate the Rapid Response Team has been discussed. Patient/Family are encouraged to report perceived risks to care and to ask questions if they do not understand what they are told or what they should do.
[2022-02-01 11:29] LABS: Glucose Point of Care 217 mg/dl (65-105)
--- NOTE | 2022-02-01 13:12 | W.PM.PROC2 ---
Procedure Note - Detailed Date of Procedure 02/01/22 Pre-op Diagnosis Prim O A left Knee Post-op Diagnosis Same Procedure Performed Partial knee arthroplasty, left knee, medial compartment. Surgeon Jd Santos MD Bottom Cementer Antoinette Schmitz PA-C Anesthesia General Findings 8mm poly was greater than 2.5mm lax in extension and flexion. The 9mm poly was subsequently placed. Good bone quality. Minimal osteophytes. Description of Procedure Physician assistant grocery, Antoinette Schmitz PA-C, required for surgery; including patient positioning, draping, tissue retraction, maintaining instrument position, cement removal, wound closure, and dressing placement. The patient was given a general anesthetic. Preoperative antibiotics were given. The knee was prepped and draped in the usual sterile fashion. A longitudinal incision was created along the medial aspect of the patellar tendon. A minimally invasive optimized mid vastus approach was completed. No medial release was taken. The external alignment guide was used to cut the tibia with anatomic posterior slope. A 4 millimeter resection was taken. The spacer block technique was utilized to measure flexion and extension gaps after the osteophytes were removed. The difference was used to calculate the distal resection. The distal cutting block was utilized to cut the distal femur. The AP and chamfer block was utilized for this last cuts. The femur and tibia were sized. Range of motion and gap balancing was assessed. This was tested with the 1.5 millimeter spacer. The bony surfaces were cleaned with lavaged. Lug holes were drilled. The real components were cemented into position. Excess cement was carefully removed. The tourniquet was released. Meticulous hemostasis was maintained. The wound was closed with interrupted 1 Vicryl suture followed by a running 0 Quill suture and 2-0 Quill suture. Steri-Strips are placed in the skin the patient was extubated and brought to recovery room in stable condition. There were no complications. Implants [email or web address] system femur size 3, tibia size 3, 9mm polyethylene insert. One batch Simplex antibiotic cement. Estimated Blood Loss -20.0 Drains No Complications No immediate complications Condition Stable Disposition PACU [facility] Billing Surgery - Charge Forward: Surgery Billing
[2022-02-01] MEDS: MELOXICAM 7.5 MG TABLET PO ×2 (13:59→22:05)
[2022-02-01] MEDS: ATORVASTATIN 20 MG TABLET PO (13:59)
[2022-02-01] MEDS: metFORMIN HCL XR 500 MG TAB.SR.24H 1000 MG PO ×2 (14:00→22:05)
[2022-02-01] MEDS: lisinopriL 10 MG TABLET PO (14:01)
[2022-02-01] MEDS: hydroCHLOROthiazide 12.5 MG CAPSULE PO (14:01)
--- NOTE | 2022-02-01 14:25 | PM.IMCN ---
Assessment and Plan Assessment and plan (1) History of arthroplasty of left knee: Code(s): Z96.652 - Presence of left artificial knee joint Status: Acute Assessment and Plan: -PT OT per orthopedic surgeon. -analgesic per orthopedic surgeon. The patient is currently on acetaminophen, cyclobenzaprine, Mobic, and oxycodone -surgical care per orthopedic surgeon. -DVT prophylaxis per orthopedic surgeon. She currently has SCDs and PATRICIA to the right foot. (2) Type 2 diabetes mellitus: Qualifiers: Diabetes mellitus terminologist insulin use: without fci use Diabetes mellitus complication status: with hyperglycemia Qualified Code(s): E11.65 - Type 2 diabetes mellitus with hyperglycemia Code(s): E11.9 - Type 2 diabetes mellitus without complications Status: Acute Assessment and Plan: -Accu-Cheks AC and HS with sliding scale insulin. -continue with the glargine. -the patient has been continued on metformin. -please continue to monitor BMP (3) HTN (hypertension): Qualifiers: Hypertension type: primary hypertension Qualified Code(s): I10 - Essential (primary) hypertension Code(s): I10 - Essential (primary) hypertension Status: Acute Assessment and Plan: -the patient has been continue with lisinopril. Please continue to monitor BMP -the patient has been continued on hydrochlorothiazide. Continue to monitor sodium levels. (4) Pulmonary nodule: Code(s): R91.1 - Solitary pulmonary nodule Status: Acute Assessment and Plan: -this is being monitored outpatient (5) Depression: Qualifiers: Depression Type: major depressive disorder Major depression recurrence: recurrent Active/Remission status: currently active Major depression episode severity: moderate Qualified Code(s): F33.1 - Major depressive disorder, recurrent, moderate Code(s): F32.9 - Major depressive disorder, single episode, unspecified Status: Acute Assessment and Plan: -continue with trazodone and Effexor. Plan Thank you for allowing me to consult on this pleasant patient. HPI Data of Consult Consult date: 02/01/22 Requesting Physician: Jd Santos MD Primary Care Provider: David Andersen DO Consult Narrative Narrative: Avelina Kemp is a 66 year old female who has a history of having a meniscus repair of the left knee as well as right knee. The patient has been complaining of severe left knee pain that has become progressively worse over the last year despite arthroscopic medial meniscus repair. The patient underwent a partial left knee arthroplasty per Dr. Santos today. The patient has no complaints. She has not been up in the chair as of yet. The patient stated that she just feels a little sleepy from the surgery and that she did not sleep very well last night. Her is at the bedside. See operative report. No immediate complications were noted. The patient is being admitted to orthopedic surgeon. The hospitalist group has been asked to consult on the patient on the date of service of 02/01/2022. Review of Systems Review of Systems: See HPI All systems reviewed & are unremarkable except as noted in HPI and below Constitutional: Constitutional: Reports as per HPI and Reports no additional constitutional complaints Eyes: Eyes: Reports as per HPI and Reports no additional eye complaints ENT: Reports system reviewed and no additional complaints, except as documented and Reports Normal hearing present Cardiovascular: Cardiovascular: Reports no additional cardiovascular complaints Respiratory: Respiratory: Reports no additional respiratory complaints and Reports no additional respiratory complaints Gastrointestinal: Gastrointestinal: Reports as per HPI and Reports no additional gastrointestinal complaints Musculoskeletal: Musculoskeletal: Reports no additional musculoskeletal complaints Integumentary
[2022-02-01] MEDS: ASPIRIN 81 MG ENTERIC TABLET PO ×2 (14:45→22:05)
[2022-02-01 17:05] LABS: Glucose Point of Care 193 mg/dl (65-105)
[2022-02-01] MEDS: traZODone HCL 50 MG TABLET 200 MG PO (22:06)
[2022-02-01] MEDS: PANTOPRAZOLE 40 MG TABLET PO (22:07)
[2022-02-01] MEDS: INSULIN GLARGINE (*BKC) 100 UNITS/ML 20 UNITS SUB-Q (22:08)
[2022-02-01 22:18] LABS: Glucose Point of Care 153 mg/dl (65-105)
[2022-02-02 00:50] VITALS: BP 109/46; PULSE 82; RESP 18; TEMP 36.8; O2SAT 96
[2022-02-02 01:03] VITALS: PULSE 83; O2SAT 96
[2022-02-02] MEDS: ceFAZolin 2 GM/D5W 50 ML 2 GM/50 ML BAG IVPB ×2 (01:05→08:51)
[2022-02-02 05:40] VITALS: PULSE 82; O2SAT 95
[2022-02-02 06:43] VITALS: BP 111/54; PULSE 74; RESP 21; TEMP 36.5; O2SAT 100
[2022-02-02 06:49] LABS: Basophils Absolute Auto 0.1 K/mm3 (0.0-0.1); Basophils Percent Auto 0.3 % (0.2-1.2); Eosinophils Absolute Auto 0.2 K/mm3 (0-0.3); Eosinophils Percent Auto 1.1 % (0-4.4); Hematocrit 30.2 % (37.0-47.0); Hemoglobin 8.9 g/dL (12.0-15.0); Immature Granulocyte Percent A 0.6 % (0-0.5); Lymphocytes Absolute Auto 4.06 K/mm3 (0.9-3.2); Lymphocytes Percent Auto 23.3 % (18.3-44.2); Mean Corpuscular HGB Conc 29.5 g/dl (32-36); Mean Corpuscular Hemoglobin 21.4 pg (26-34); Mean Corpuscular Volume 72.8 fl (80-100); Mean Platelet Volume 10.8 fl (7.4-10.4); Monocytes Absolute Auto 1.5 K/mm3 (0.1-0.6); Monocytes Percent Auto 8.5 % (2.6-8.5); Neutrophils Absolute Auto 11.5 K/mm3 (1.3-6.7); Neutrophils Percent Auto 66.2 % (45.5-73.1); Platelet Count Result 220 k/mm3 (150-375); Red Blood Count 4.15 M/mm3 (4.2-5.4); Red Cell Distribution Width 17.8 % (11.5-14.5); White Blood Count 17.4 K/mm3 (4.5-10.0)
[2022-02-02 07:00] LABS: Alanine Aminotransferase 20 U/L (6-35); Albumin Level 3.6 g/dL (3.5-5.1); Alkaline Phosphatase 62 U/L (38-126); Anion Gap 11 mmol/L (8-16); Aspartate Amino Transferase 23 U/L (14-36); Bilirubin,Total 0.3 mg/dL (0.2-1.3); Blood Urea Nitrogen 11 mg/dL (7-17); Calcium 8.6 mg/dL (8.4-10.2); Carbon Dioxide 25 mmol/L (22-30); Chloride 98 mmol/L (98-107); Estimated CRCL calculation 85 ml/min; Estimated Glomerular Filt Rate > 60; Glucose 122 mg/dL (65-110); Magnesium 1.9 mg/dL (1.6-2.3); Potassium 3.7 mmol/L (3.4-5.0); Sodium 134 mmol/L (137-145)
[2022-02-02 07:14] LABS: Anisocytosis 1+ (NORMAL); Ovalocytes 1+ (NORMAL); Platelet Estimate Adequate (Adequate)
[2022-02-02 07:17] LABS: Schistocytes None Seen (NORMAL)
[2022-02-02 08:14] LABS: Glucose Point of Care 122 mg/dl (65-105)
[2022-02-02] MEDS: VENLAFAXINE HCL XR 75 MG CAP.ER.24H 150 MG PO (08:46)
[2022-02-02] MEDS: metFORMIN HCL XR 500 MG TAB.SR.24H 1000 MG PO (08:47)
[2022-02-02] MEDS: hydroCHLOROthiazide 12.5 MG CAPSULE PO (08:47)
[2022-02-02] MEDS: SENNA/DOCUSATE SODIUM TABLET 2 TAB PO (08:47)
[2022-02-02] MEDS: predniSONE 5 MG TABLET PO (08:47)
[2022-02-02] MEDS: polyethylene glycoL 3350 17 GM POWD.PACK PO (08:48)
[2022-02-02] MEDS: lisinopriL 10 MG TABLET PO (08:48)
[2022-02-02] MEDS: MELOXICAM 7.5 MG TABLET PO (08:48)
[2022-02-02] MEDS: ASPIRIN 81 MG ENTERIC TABLET PO (08:48)
--- NOTE | 2022-02-02 09:15 | PM.IMPN ---
Progress Note: A&P Assessment and Plan (1) Type 2 diabetes mellitus: Qualifiers: Diabetes mellitus complication status: with hyperglycemia Diabetes mellitus salvage determiner insulin use: without salvage determiner use Qualified Code(s): E11.65 - Type 2 diabetes mellitus with hyperglycemia Code(s): E11.9 - Type 2 diabetes mellitus without complications Status: Acute Assessment and Plan: -Current Glucose 122 -Accu-Cheks AC and HS with sliding scale insulin. -continue with the glargine. -the patient has been continued on metformin. -please continue to monitor BMP (2) HTN (hypertension): Qualifiers: Hypertension type: primary hypertension Qualified Code(s): I10 - Essential (primary) hypertension Code(s): I10 - Essential (primary) hypertension Status: Acute Assessment and Plan: -BP is 111/54 -continue with lisinopril and HCTZ. -Continue to trend BP -Adjust therapy as indicated (3) Pulmonary nodule: Code(s): R91.1 - Solitary pulmonary nodule Status: Acute Assessment and Plan: -this is being monitored outpatient (4) Depression: Qualifiers: Active/Remission status: currently active Depression Type: major depressive disorder Major depression episode severity: moderate Major depression recurrence: recurrent Qualified Code(s): F33.1 - Major depressive disorder, recurrent, moderate Code(s): F32.9 - Major depressive disorder, single episode, unspecified Status: Acute Assessment and Plan: -continue with trazodone and Effexor. (5) Orthopedic aftercare for joint replacement: Code(s): Z47.1 - Aftercare following joint replacement surgery Status: Acute Time Spent With Patient Time with patient: Greater than 35 minutes Subjective Date/time seen: 02/02/22914 Interval history: 02/02/22914 Patient seems to be doing well today. She stated that she is not a lot of pain however she stated that she did get a lot of blockers. She feels okay with going home she has worked with PT and OT. Labs are stable white count slightly elevated however it is probably due to the surgery. She denies any chest pain, shortness a breath, nausea, vomiting, diarrhea, constipation, weakness or fatigue. Consult date: 02/01/22 Avelina Kemp is a 66 year old female who has a history of having a meniscus repair of the left knee as well as right knee.? The patient has been complaining of severe left knee pain that has become progressively worse over the last year despite arthroscopic medial meniscus repair.? The patient underwent a partial left knee arthroplasty per Dr. Santos today.? The patient has no complaints.? She has not been up in the chair as of yet.? The patient stated that she just feels a little sleepy from the surgery and that she did not sleep very well last night.? Her is at the bedside.? See operative report.? No immediate complications were noted.? The patient is being admitted to orthopedic surgeon.? The hospitalist group has been asked to consult on the patient on the date of service of 02/01/2022. Review of Systems Review of Systems: All systems reviewed & are unremarkable except as noted in HPI and below Exam Const: General: cooperative, healthy appearing, comfortable, no acute distress, well developed, alert, awake, Physically active, average body habitus and well nourished Nutritional Appearance: average body habitus and well nourished Orientation/consciousness: oriented to person, oriented to place, oriented to time and patient oriented x3 Limitations: no limitations HENMT: Head: normal to inspection, No palpable skull fracture present and normocephalic Ears: hearing grossly normal bilaterally and external ears normal Face/Nose/Sinus: Normal external nose present and Normal nares present Eyes: General: appearance normal, both eyes and all related structures Al
[2022-02-02 09:38] LABS: Hemoglobin A1C 8.1 % (<5.7)
[2022-02-02 10:00] VITALS: BP 121/58; PULSE 78; RESP 18; TEMP 36.5; O2SAT 98
--- NOTE | 2022-02-02 10:14 | WPDANESPN ---
Anes - Prog Note Post-Op Date/Time: 02/02/22 10:14 Cardiovascular status: normal Respiratory status: normal Airway patency: baseline Mental status: baseline Post-Op hydration status: normal Vital Signs: Last Vital Signs Temp 36.5 C 02/02/22 06:43 Pulse 74 02/02/22 06:43 Resp 21 H 02/02/22 06:43 BP 111/54 L 02/02/22 06:43 Pulse Ox 100 02/02/22 06:43 O2 Del Method Autopap 02/02/22 05:40 O2 Flow Rate 2 02/01/22 10:45 Pain Score (VAS): 06/01 I/O: Intake & Output 02/01/22 02/02/22 02/02/22 23:59 07:59 15:59 Intake Total 830 1050 120 Output Total 1600 1200 Balance -770 -150 120 Laboratory Tests 02/02/22 06:03 02/02/22 06:03 02/01/22 02/01/22 02/01/22 11:22 16:53 22:02 WBC RBC Hgb Hct MCV MCH MCHC RDW Plt Count MPV Immature Gran % (Auto) Neut % (Auto) Lymph % (Auto) Lake % (Auto) Eos % (Auto) Baso % (Auto) Lymph # (Auto) Lake # (Auto) Eos # (Auto) Baso # (Auto) Abs Immat Gran (auto) Absolute Neuts (auto) Absolute Nucleated RBC Nucleated RBC % Platelet Estimate Anisocytosis Ovalocytes Schistocytes Sodium Potassium Chloride Carbon Dioxide Anion Gap BUN Creatinine Estim Creat Clear Calc Estimated GFR Glucose POC Capillary Glucose 217 H 193 H 153 H Hemoglobin A1c Calcium Magnesium Total Bilirubin AST ALT Alkaline Phosphatase Total Protein Albumin 02/02/22 02/02/22 02/02/22 06:03 06:03 06:03 WBC 17.4 H RBC 4.15 L Hgb 8.9 L Hct 30.2 L MCV 72.8 L MCH 21.4 L MCHC 29.5 L RDW 17.8 H Plt Count 220 MPV 10.8 H Immature Gran % (Auto) 0.6 H Neut % (Auto) 66.2 Lymph % (Auto) 23.3 Lake % (Auto) 8.5 Eos % (Auto) 1.1 Baso % (Auto) 0.3 Lymph # (Auto) 4.06 H Lake # (Auto) 1.5 H Eos # (Auto) 0.2 Baso # (Auto) 0.1 Abs Immat Gran (auto) 0.10 H Absolute Neuts (auto) 11.5 H Absolute Nucleated RBC 0.0 Nucleated RBC % 0.0 Platelet Estimate Adequate Anisocytosis 1+ Ovalocytes 1+ Schistocytes None seen Sodium 134 L Potassium 3.7 Chloride 98 Carbon Dioxide 25 Anion Gap 11 BUN 11 Creatinine 0.60 L Estim Creat Clear Calc 85 Estimated GFR > 60 Glucose 122 H POC Capillary Glucose Hemoglobin A1c 8.1 H Calcium 8.6 Magnesium 1.9 Total Bilirubin 0.3 AST 23 ALT 20 Alkaline Phosphatase 62 Total Protein 6.0 L Albumin 3.6 02/02/22 08:10 WBC RBC Hgb Hct MCV MCH MCHC RDW Plt Count MPV Immature Gran % (Auto) Neut % (Auto) Lymph % (Auto) Lake % (Auto) Eos % (Auto) Baso % (Auto) Lymph # (Auto) Lake # (Auto) Eos # (Auto) Baso # (Auto) Abs Immat Gran (auto) Absolute Neuts (auto) Absolute Nucleated RBC Nucleated RBC % Platelet Estimate Anisocytosis Ovalocytes Schistocytes Sodium Potassium Chloride Carbon Dioxide Anion Gap BUN Creatinine Estim Creat Clear Calc Estimated GFR Glucose POC Capillary Glucose 122 H Hemoglobin A1c Calcium Magnesium Total Bilirubin AST ALT Alkaline Phosphatase Total Protein Albumin Post-procedural complaints: none Patient Feedback: Patient satisfied with anesthetic care.
--- NOTE | 2022-02-05 14:13 | PM.DS ---
DS: Admitting Diagnosis Discharge Date 02/02/22 Admitting Diagnosis Left knee arthritis. DS: Discharge Diagnosis Discharge Diagnosis (1) History of arthroplasty of left knee: Code(s): Z96.652 - Presence of left artificial knee joint Status: Acute Assessment and Plan: Postop day 1: Left partial knee arthroplasty. Patient tolerated procedure well. No complications. Pain manageable with pain medication. No numbness or tingling. We had a lengthy discussion regarding postoperative wound care, limitations, expectations, and exercises. Patient shows good understanding. She has had initial physical therapy and is tolerating it well. DVT prophylaxis: 81 mg baby aspirin b.i.d. for 14 days. Pain medication: Percocet. Patient has followup appointment with Dr. Santos in 3 weeks. DS: Summary Hospital Course Reason for hospitalization: Partial knee arthroplasty Hospital Course: Patient tolerated procedure well. Has had initial PT/OT. Status at Discharge Functional status at discharge: uses cane/walker Overall status at discharge: patient is progressing back to baseline Time Spent with Patient Time attestation: Total time spent providing and/or coordinating discharge services: Exam Narrative: 66-year-old overweight female. Resting comfortably in chair. Alert and oriented x3. No acute distress. Wearing compression socks bilaterally. Dressing intact without drainage. Mild swelling. No ecchymosis. No erythema. No hematoma. Range of motion limited due to pain. Calf nontender. Neurologic status intact. No varicosities. Distal pulses palpable. Discharge Plan Discharge Patient Disposition: Home, Self-Care Discharge Instructions: See green instructions sheets Patient Instructions: Pain Management (DC), Knee Replacement (DC) Follow-up/Referrals: Antoinette Patton PA [Physician Senior Staff Specialized Employment] - Discharge Medications: New meloxicam 15 mg tablet 15 mg PO DAILY Qty: 30 0RF Rx Instructions: Cut in half. Take 1/2 in morning and 1/2 at night. Take with food. Stop if stomach upset. prednisone 5 mg tablet 5 mg PO DAILY 21 Days Qty: 21 0RF aspirin 81 mg tablet,delayed release (DR/EC) 81 mg PO BID 14 Days Qty: 28 0RF oxycodone-acetaminophen 5-325 mg tablet 1 - 2 tablet PO Q4-6H MDD 6 PRN (Reason: pain) Qty: 30 0RF Continued Trulicity 4.5 mg/0.5 mL pen injector 4.5 mg subcut WEEKLY 90 Days Qty: 6 3RF Label Comments: TAKES ON MONDAYS venlafaxine [Effexor XR] 150 mg capsule,extended release 24hr 150 mg PO DAILY Qty: 90 1RF trazodone 100 mg tablet 200 mg PO HS Qty: 180 0RF clotrimazole-betamethasone 1-0.05 % cream 1 applic topical BID PRN (Reason: vaginal irritation) 14 Days Qty: 45 2RF (DME) pen needle, diabetic [BD Cass 2nd Gen Pen Needle] 32 gauge x 5/32 needle See Rx Instructions .Route Qty: 100 2RF Rx Instructions: As directed, daily shot metformin 500 mg tablet extended release 24 hr 1,000 mg PO BID Qty: 360 3RF multivitamin Capsule 1 cap PO DAILY lisinopril-hydrochlorothiazide 10-12.5 mg tablet 1 tablet PO DAILY Qty: 90 3RF magnesium 200 mg tablet 400 mg PO BID aspirin [Adult Low Dose Aspirin] 81 mg Tablet,Delayed Release (Dr/Ec) 81 mg PO DAILY (DME) OneTouch Verio test strips Strip See Rx Instructions .Route Qty: 300 1RF Rx Instructions: Test BS 3 times daily omeprazole 20 mg capsule,delayed release(DR/EC) 20 mg PO DAILY Qty: 90 1RF atorvastatin 20 mg tablet 20 mg PO DAILY Qty: 90 3RF Toujeo Max U-300 SoloStar 300 unit/mL (3 mL) insulin pen 20 unit subcut QHS Qty: 6 0RF
== END 2022-02-02 11:57 | disposition home or self-care (01) ==
LOC: ANHSURGERY 06:00 → ANH2MED 11:13
PROVIDERS: Nurse Practitioner; PCP Family Medicine; Visit Provider Orthopaedic Surgery
PROC: (CPT 27446; principal; 2022-02-01 07:30)
DX: M17.12 Unilateral primary osteoarthritis, left knee (principal); E11.9 Type 2 diabetes mellitus without complications; I10 Essential (primary) hypertension; R91.1 Solitary pulmonary nodule; F33.1 Major depressive disorder, recurrent, moderate; Z79.899 Other long term (current) drug therapy; Z79.84 Long term (current) use of oral hypoglycemic drugs; Z79.82 Long term (current) use of aspirin
CPT/HCPCS: 27447; 36415; 73560; 80053; 82948; 83036; 83735; 85025; 85048; 86850; 86900; 86901; 97110; 97116; 97161; 97165; 97530; 97535; A9270; C1713; C1776; J0131; J0171; J0690; J1100; J1815; J1885; J2250; J2270; J2370; J2405; J2704; J2795; J3010; J7120; J7512

== ENCOUNTER → 2022-05-14 11:23 | Outpatient (CLI) | payer BC, SELFPAY ==
--- NOTE | ~2022-05-14 | CT_ITS ---
CT Scan of the Chest without Contrast: Clinical Indication: Pulmonary nodules Technique: Contiguous sections were acquired throughout the chest without intravenous contrast. Dose reduction technique was used on this scan by utilizing automated exposure control and iterative recon struction technique. The dose-length product (DLP) was 278.65 mGy-cm. COMPARISON: 04/03/2021 and 02/16/2020 Findings: Stable partially calcified and probable partially cystic left thyroid lobe nodule. There is no evidence of any significant mediastinal, hilar or axillary lymphadenopathy. The mediastin al soft tissues appear normal. Small to moderate hiatal hernia noted. There is no evidence of pleural or pericardial effusion. 6 mm left lower lobe pulmonary nodule noted, unchanged (axial image 78). Stable 2 mm right lower lobe pulmonary nodule (image 66). Images through the upper abdomen reveal no abnormalities. Impression: Stable bilateral pulmonary nodules, as detailed above. Stability for over 2 years is compatible with benignity. Stable small to moderate hiatal hernia. Reviewed, dictated and finalized at [facility]. [place] LOSS PREVENTION OFFICER Impression: Stable bilateral pulmonary nodules, as detailed above. Stability for over 2 yea rs is compatible with benignity. Stable small to moderate hiatal hernia.
== END ==
PROVIDERS: PCP Family Medicine; Visit Provider Physician Assistant
DX: R91.8 Other nonspecific abnormal finding of lung field (principal); K44.9 Diaphragmatic hernia without obstruction or gangrene
CPT/HCPCS: 71250

== ENCOUNTER → 2022-06-22 15:33 | Outpatient (CLI) | payer BC, SELFPAY ==
--- NOTE | ~2022-06-22 | MM_ITS ---
EXAMINATION: MM screening samanta BI w kylie HISTORY: Screening TECHNIQUE: Craniocaudal and mediolateral oblique 3-D tomosynthesis images were obtained and synthetic 2-D images were generated. CAD analysis was submitted and interpreted. COMPARISON: 04/07/2021 BREAST PARENCHYMAL COMPOSITION: There are scattered areas of fibroglandular density. FINDINGS: There is no evidence of suspicious mass, calcification, or architectural distortion to sugg est malignancy in either breast. There has been no suspicious interval change. IMPRESSION: 1. No mammographic evidence of malignancy. 2. Recommend routine screening mammography in one year. BI-RADS Category 1: Negative Reviewed, dictated and finalized at location B. H EXAMINER
== END ==
PROVIDERS: PCP Family Medicine; Visit Provider Family Medicine
DX: Z12.31 Encounter for screening mammogram for malignant neoplasm of breast (principal)
CPT/HCPCS: 77063; 77067

== ENCOUNTER 2022-12-13 12:33 | Outpatient (CLI) | payer BC, SELFPAY ==
[2022-12-13 17:20] LABS: Alanine Aminotransferase 34 U/L (6-35); Albumin Level 4.6 g/dL (3.5-5.1); Alkaline Phosphatase 73 U/L (38-126); Anion Gap 11 mmol/L (8-16); Aspartate Amino Transferase 36 U/L (14-36); Bilirubin,Total 0.3 mg/dL (0.2-1.3); Blood Urea Nitrogen 12 mg/dL (7-17); Calcium 9.4 mg/dL (8.4-10.2); Carbon Dioxide 27 mmol/L (22-30); Chloride 98 mmol/L (98-107); Estimated Glomerular Filt Rate > 60; Glucose 107 mg/dL (65-110); Potassium 4.1 mmol/L (3.4-5.0); Sodium 136 mmol/L (137-145)
[2022-12-13 17:42] LABS: Basophils Absolute Auto 0.1 K/mm3 (0.0-0.1); Basophils Percent Auto 0.4 % (0.2-1.2); Eosinophils Absolute Auto 0.1 K/mm3 (0-0.3); Eosinophils Percent Auto 1.3 % (0-4.4); Hematocrit 41.8 % (37.0-47.0); Hemoglobin 11.8 g/dL (12.0-15.0); Immature Granulocyte Absolute 0.06 K/mm3 (0.00-0.031); Immature Granulocyte Percent A 0.5 % (0-0.5); Immature Platelet Fraction Pct 10.3 % (0.9-11.2); Lymphocytes Absolute Auto 2.87 K/mm3 (0.9-3.2); Lymphocytes Percent Auto 25.8 % (18.3-44.2); Mean Corpuscular HGB Conc 28.2 g/dl (32-36); Mean Corpuscular Hemoglobin 21.2 pg (26-34); Mean Platelet Volume 11.7 fl (7.4-10.4); Monocytes Absolute Auto 0.9 K/mm3 (0.1-0.6); Monocytes Percent Auto 7.6 % (2.6-8.5); Neutrophils Absolute Auto 7.2 K/mm3 (1.3-6.7); Neutrophils Percent Auto 64.4 % (45.5-73.1); Platelet Count Result 306 k/mm3 (150-375); Red Blood Count 5.57 M/mm3 (4.2-5.4); Red Cell Distribution Width 20.1 % (11.5-14.5); White Blood Count 11.1 K/mm3 (4.5-10.0)
[2022-12-13 17:55] LABS: Hypochromasia 1+ (NORMAL); Ovalocytes 1+ (NORMAL); Platelet Estimate Adequate (Adequate); Schistocytes None Seen (NORMAL)
== END 2022-12-13 12:34 | disposition home or self-care (01) ==
LOC: ANHGOSHLAB 12:34
PROVIDERS: PCP Family Medicine; Visit Provider Family Medicine
DX: R53.83 Other fatigue (principal); Z13.228 Encounter for screening for other metabolic disorders
CPT/HCPCS: 36415; 80053; 85025; 85055

== ENCOUNTER 2023-10-01 14:58 | Outpatient (CLI) | payer BC, SELFPAY ==
--- NOTE | ~2023-10-01 | MM_ITS ---
EXAMINATION: MM screening samanta BI w kylie HISTORY: Screening TECHNIQUE: Craniocaudal and mediolateral oblique 3-D tomosynthesis images were obtained and synthetic 2-D images were generated. CAD analysis was submitted and interpreted. COMPARISON: Comparison to multiple prior studies sequentially, with oldest reviewed study dated 03/22. BREAST PARENCHYMAL COMPOSITION: Not dense: There are scattered areas of fibroglandular density. FINDINGS: There is no evidence of suspicious mass, calcification, or architectural distortion to sugg est malignancy in either breast. There has been no suspicious interval change. IMPRESSION: 1. No mammographic evidence of malignancy. 2. Recommend routine screening mammography in one year. BI-RADS Category 1: Negative Reviewed, dictated and finalized at location B.
== END 2023-10-01 14:59 ==
PROVIDERS: PCP Family Medicine; Visit Provider Obstetrics & Gynecology
DX: Z12.31 Encounter for screening mammogram for malignant neoplasm of breast (principal)
CPT/HCPCS: 77063; 77067

== ENCOUNTER 2023-12-13 10:20 | Outpatient (CLI) | payer BC, SELFPAY ==
[2023-12-13 13:59] LABS: Basophils Absolute Auto 0.1 K/mm3 (0.0-0.1); Basophils Percent Auto 0.5 % (0.2-1.2); Eosinophils Absolute Auto 0.2 K/mm3 (0-0.3); Eosinophils Percent Auto 2.3 % (0-4.4); Hematocrit 37.1 % (37.0-47.0); Hemoglobin 10.7 g/dL (12.0-15.0); Immature Granulocyte Absolute 0.05 K/mm3 (0.00-0.031); Immature Granulocyte Percent A 0.5 % (0-0.5); Lymphocytes Absolute Auto 2.77 K/mm3 (0.9-3.2); Mean Corpuscular HGB Conc 28.8 g/dl (32-36); Mean Corpuscular Hemoglobin 22.1 pg (26-34); Mean Corpuscular Volume 76.5 fl (80-100); Mean Platelet Volume 11.7 fl (7.4-10.4); Monocytes Absolute Auto 0.9 K/mm3 (0.1-0.6); Monocytes Percent Auto 9.6 % (2.6-8.5); Neutrophils Absolute Auto 5.5 K/mm3 (1.3-6.7); Neutrophils Percent Auto 58.1 % (45.5-73.1); Platelet Count Result 264 k/mm3 (150-375); Red Blood Count 4.85 M/mm3 (4.2-5.4); Red Cell Distribution Width 17.1 % (11.5-14.5); White Blood Count 9.5 K/mm3 (4.5-10.0)
[2023-12-13 14:08] LABS: Hemoglobin A1C 5.8 % (<5.7)
[2023-12-13 14:14] LABS: Alanine Aminotransferase 16 U/L (6-35); Albumin Level 4.2 g/dL (3.5-5.1); Alkaline Phosphatase 72 U/L (38-126); Anion Gap 9 mmol/L (4-12); Aspartate Amino Transferase 43 U/L (14-36); Bilirubin,Total 0.3 mg/dL (0.2-1.3); Blood Urea Nitrogen 11 mg/dL (7-17); Calcium 9.3 mg/dL (8.4-10.2); Carbon Dioxide 29 mmol/L (22-30); Chloride 102 mmol/L (98-107); Cholesterol 159 mg/dL (0-200); Estimated Glomerular Filt Rate > 60; Glucose 103 mg/dL (65-110); HDL Direct 52 mg/dL; Potassium 4.3 mmol/L (3.4-5.0); Sodium 140 mmol/L (137-145); Triglycerides 134 mg/dL (<150)
[2023-12-13 14:25] LABS: LDL Cholesterol Direct 83 mg/dL
[2023-12-13 14:42] LABS: Creatinine Urine 90.1 mg/dL
[2023-12-13 14:46] LABS: MALB Creatinine Ratio 10.9 mg/g (0-30); Microalbumin Urine Random 9.8 mg/L (0-16.7)
[2023-12-13 15:58] LABS: Iron 26 ug/dL (37-170)
[2023-12-13 16:08] LABS: Percent Iron Saturation 6 % (20-50)
[2023-12-13 16:35] LABS: Ferritin 7.17 ng/mL (11.1-264)
[2023-12-13 17:00] LABS: Platelet Estimate Adequate (Adequate)
[2023-12-13 17:01] LABS: Anisocytosis 2+; Hypochromasia 1+; Schistocytes None Seen
== END 2023-12-13 10:21 | disposition home or self-care (01) ==
LOC: ANHGOSHLAB 10:20
PROVIDERS: PCP Family Medicine; Visit Provider Family Medicine
DX: D50.9 Iron deficiency anemia, unspecified (principal); Z13.228 Encounter for screening for other metabolic disorders; R53.83 Other fatigue; E78.00 Pure hypercholesterolemia, unspecified; Z13.220 Encounter for screening for lipoid disorders; E11.9 Type 2 diabetes mellitus without complications
CPT/HCPCS: 36415; 80053; 80061; 82043; 82728; 83036; 83540; 83550; 85025

== ENCOUNTER 2024-11-06 10:45 | Outpatient (CLI) | payer BC, MEDICARE, SELFPAY ==
--- OUTSIDE RECORDS SUMMARY | 2024-11-06 10:49 | XMS_ITS | Clinical Summary ---
Author Organization [facility] Address [address] [place] [address] Care Team Providers Care Shopper Name Role Phone Kylie Sol MD Primary Care Provider [phone] Source Comments [facility],non-owned Affiliates and Associated Physician Practices is amultiple site organization consisting of ambulatory clinics and hospital sitesin [place], [place], [place] and [place]. This disclosure is being madepursuant to the Care Everywhere program and may not contain all information available regarding this patient. Last updated 18.[facility] Social History Tobacco Use Types Packs/Day Years Used Date Smoking Tobacco: Never Assessed Comments Unknown Sex and Gender Information Value Date Recorded Sex Assigned at Not on file Legal Sex Female 7:17 AM CDT Gender Identity Not on file Sexual Orientation Not on file Plan of Treatment Health Maintenance Due Date Last Done Comments BONE DENSITY TESTING 1955 COLOGUARD (AGES 45-75) - COL ON CA SCREENING 1956 COLON MONITORING 1956 COLONOSCOPY - COLON CA SCREENING 1956 CT COLONOGRAPHY - COLON CA SCREENING 1956 Colorectal Cancer Screening 1956 FIT - COLON CA SCREENING 1956 FLEX SIG - COLON CA SCREENING 1956 LIPID TESTING 1956 MAMMOGRAM 1956 HEPATITIS C SCREENING 07/29/1974 DTAP/TDAP/TD VACCINES (1 - Tdap) 08/03/1975 PNEUMOCOCCAL VACCINE 50+ (1 of 1 - PCV) 2006 ZOSTER VACCINE (1 of 2) 2006 COVID-19 VACCINE (1 - 2023-2 5 season) 2023 DEPRESSION SCREENING 04/22/2024 INFLUENZA VACCINE (#1) 2024 Respiratory Syncytial Virus (RSV) Vaccine Pt: or over 60 yrs (1 - 1-dose 75+ series) 08/03/2031 HEPATITIS B VACCINE Aged Out No longe r eligible based on patient's age to complete this topic HIB VACCINE Aged Out No longer eligi ble based on patient's age to complete this topic HPV VACCINE Aged Out No longer eligi ble based on patient's age to complete this topic MENINGOCOCCAL (Group B) VACC INE SHARED DECISION-MAKING Aged Out No longer eligibl e based on patient's age to complete this topic MENINGOCOCCAL GROUPS A/C/Y/W VACCINE Aged Out No longer eligible b ased on patient's age to complete this topic Insurance ANTHEM ANTHEM Care Teams Shopper Relationship Specialty Start Date End Date Kylie Sol MD [address] [place] [id number] PCP - General 01/09/19
--- OUTSIDE RECORDS SUMMARY | 2024-11-06 10:49 | XMS_ITS | Encounter Summary ---
Author Organization [facility] Address [address] [place] [address] Care Team Providers Care Broker Associate Name Role Phone Kylie Sol MD Primary Care Provider [phone] Encounter Details Date Type Department Care Team (Late st Contact Info) Description 01/09/2019 Lab Requisition [facility] Lab [address] [place] [address] Charlene Valente MD [address] [place] [address] Social History Tobacco Use Types Packs/Day Years Used Date Smoking Tobacco: Never Assessed Comments Unknown Sex and Gender Information Value Date Recorded Sex Assigned at Not on file Legal Sex Female 7:17 AM CDT Gender Identity Not on file Sexual Orientation Not on file documented as of this encounter Plan of Treatment Not on file documented as of this encounter Procedures Procedure Name Priority Date/Time Associated Diagnosis Comments DERMATOPATH TECHNICAL REPORT Routine 01/08/2019 12:00 AM CDT documented in this encounter Results * DERMATOPATH TECHNICAL REPORT (01/08/2019 12:00 AM CDT) Case Report Dermatopathology Report Case: [id number] Authorizing Provider: Charlene Valente MD Collected: 01/08/2019 12:00 AM Ordering Location: [facility] Lab Received: 01/09/2019 01:06 PM Pathologist: Muriel Ordonez MD Specimen: Skin, left dorsal hand 9 3:33 PM CDT DERMATOPATHOLOGY LABORATORY Clinical History Lentigo 9 3:33 PM CDT DERMATOPATHOLOGY LABORATORY Gross Description Specimen A: Received is one formalin filled container labeled with the patient's name and designated left dorsal hand. The specimen consists of a shave biopsy measuring 11x6x1 mm. Jar 0. [facility] Dermatopathology Laboratory performed the technical component only. 9 3:33 PM CDT DERMATOPATHOLOGY LABORATORY Embedded Images 3:33 PM CDT DERMATOPATHOLOGY LABORATORY DISCLAIMER An external and internal positive and negative controls are appropriate for the histochemical, immunohistochemical and immunofluorescence stain(s) in this case (if any), except where stated explicitly. The performance characteristics of the stain(s) cited in this report were developed and its performance characteristic determined by the Dermatopathology Laboratory at [facility], directed by Dr. Young Ordonez. These tests need not be, and therefore are not, approved by the [place] Food and Drug Administration. The tests are used for clinical purposes. 3:33 PM CDT DERMATOPATHOLOGY LABORATORY at 1533 CDT Pathology/Cytolog y TISSUE SPECIMEN FROM SKIN / Unknown 01/08/2019 01/09/2019 1:06 PM CDT Charlene Valente MD LAB - PATHOLOGY/CYTOLOGY OR DERABLES Final Result DERMATOPATHOLOGY LABORATORY [facility] - Department of Dermatology [address] [place] [address], 5th Floor Lab [address] [phone] documented in this encounter Visit Diagnoses Not on filedocumented in this encounter Care Teams Broker Associate Relationship Specialty Start Date End Date Kylie Sol MD [address] [place] [address] PCP - General 01/09/19 documented as of this encounter
--- OUTSIDE RECORDS SUMMARY | 2024-11-06 10:49 | XMS_ITS | Clinical Summary ---
Author Organization [facility] Address [address] [place] [address] Phone Care Team Providers Care Movement Therapist Name Role Phone Rey Sol MD Primary Care Provider [phone] Allergies No known active allergies Medications metFORMIN (GLUCOPHAGE) 500 mg tablet 08/16/2014 Active omeprazole (PRILOSEC) 20 mg Capsule, Delayed Release(E.C.) 08/17/2014 Activ e traZODone (DESYREL) 100 mg tablet 08/03/2014 Active venlafaxine (EFFEXOR XR) 75 mg Extended Release 24 hour capsule 09/11/2014 Active calcium carbonate/vitami n D3 (CALTRATE 600 + D ORAL) Take by mouth. Active MULTIVITAMIN ORAL Take by mouth. Active aspirin (ECOTRIN EC) 81 mg Tablet, Delayed Release (E.C.) Take 81 mg by mouth. Active ONETOUCH ULTRA BLUE TEST STRIP Strip 06/10/2018 Active TRULICITY 0.75 mg/0.5 mL Pen Injector 07/24/2018 Active MONOVISC 88 mg/4 mL Syringe 08/07/2018 Active magnesium oxide (MAG-OX) 400 mg (241.3 mg magnesium) tablet Take 400 mg by mouth. Active lisinopril-hydro CHLOROthiazide (ZESTORETIC) 10-12.5 mg tablet 07/03/2018 Active Active Problems Patient Care Coordination No te Formatting of this note migh t be different from the original. Primary Care: Rey Sol MD Referring Provider: Rey Sol MD [address] [place] [address] Other: Dr. Lizzette Sanz MD Problem Noted Date Diagnosed Date Annual physical exam 07/20/2016 Family history of breast cancer 11/10/2008 Diffuse cystic mastopathy 11/10/2008 Diabetes Unspecified essential hypertension Psychiatric disorder Overview (11/10/2008): depression Gastric ulcer, unspecified a s acute or chronic, without mention of hemorrhage, perforation, or obstruction Family History Medical History Relation Name Comments Heart Disease Father Breast Cancer Maternal Aunt Heart Disease Maternal Grandfather Heart Disease Maternal Grandmother Breast Cancer Mother BRCA neg Heart Disease Mother Heart Disease Paternal Grandfather Heart Disease Paternal Grandmother Breast Cancer Sister DCIS at age 45 in 2008 Relation Name Status Comments Father Maternal Aunt Maternal Grandfather Maternal Grandmother Mother Paternal Grandfather Paternal Grandmother Sister Social History Tobacco Use Types Packs/Day Years Used Date Smoking Tobacco: Former Smokeless Tobacco: Never Alcohol Use Standard Drinks/Week Comments Yes 0 (1 standard drink = 0.6 oz pur e alcohol) rare Comments No Sex and Gender Information Value Date Recorded Sex Assigned at Not on file Legal Sex Female 5:42 AM 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 Gender Identity Not on file Sexual Orientation Not on file Last Filed Vital Signs Vital Sign Reading Time Taken Comments Blood Pressure 134/72 09/16/2018 11:07 AM CDT Pulse 64 11/09/2014 10:48 AM CDT Temperature - - Respiratory Rate - - Oxygen Saturation - - Inhaled Oxygen Concentration - - Weight 93 kg (205 lb) 09/16/2018 11:07 AM CDT Height 167.6 cm (5' 6) 09/16/2018 11:07 AM CDT Body Mass Index 33.09 09/16/2018 11:07 AM CDT Plan of Treatment Health Maintenance Due Date Last Done Comments DIABETES ANNUAL FOOT EXAM 1974 DIABETES ANNUAL RETINAL EXAM 1974 LDL CHOLESTEROL ANNUAL 1974 DTAP/TDAP/TD VACCINES (1 - Tdap) 08/03/1975 PNEUMOCOCCAL VACCINE 50+ YEA RS (1 of 2 - PCV) 08/03/1975 COLORECTAL SCREENING 2001 FIT-DNA Q 3 years 2001 Flex Sig/CT Colonography Q 5 years 2001 ZOSTER VACCINE (1 of 2) 2006 BREAST CANCER SCREENING 09/17/2019 09/17/19 19, 04/12/2014, 10/06/2010, Additional history exists DIABETES MICROALBUMIN ANNUAL SCREEN 01/31/2021 02/01/2020 Colorectal Cancer Screening 02/16/2021 FIT/FOBT Q 1 year 02/16/2021 02/17/2020 DIABETES HBA1C Q 6 MONTHS 04/11/20212020, 02/01/2020, 02/01/2020, Additional history exists OSTEOPOROSIS SCREENING 2021 INFLUENZA VACCINE (#1) 2024 RSV VACCINE (60+ or ) (1 - 1-dose 75+ series) 08/03/2031 Procedures Procedure Name Priority Date/Time Associated Diagnosis Comments OCCULT BLOOD SCREENING EIA, STOOL Routine 02/17/2020 MICROALBUMIN, RANDOM URINE Routine 02/01/2020 HEMOGLOBIN A1C Routine 02/01/2020 MAMMO 3D DAVID SCREEN BILAT W OR WO CAD Routine 09/16/2018 10:58 AM CDT Family history of breast cancer from Last 3 Months or Most Recently Relevant to Health Maintenance Results * OCCULT BLOOD SCREENING EIA, STOOL (02/17/2020) Stool STOOL SPECIMEN / Unknown us Abstract Provider BODY FLUIDS AND STOOLS Edited Result - Final [facility] * MICROALBUMIN, RANDOM URINE (02/01/2020) ABSTRACTED MICROALBUMIN,UR INE 4.5 [facility] MICROALBUMIN, URINE [facility] CREATININE, URINE [facility] MICROALBUMIN/CR EAT RATIO, UR [facility] MICROALBUMIN, URINE [facility] CREATININE, URINE [facility] MICROALBUMIN/CR EAT RATIO, UR [facility] Urine URINE SPECIMEN OBTAINED BY CLEAN CATCH PROCEDURE / Unknown us Abstract Provider URINE ORDERABLES Edited Result - Final [facility] * (ABNORMAL) HEMOGLOBIN A1C (02/01/2020) ABSTRACTED HGB A1C 0.0 [facility] HEMOGLOBIN A1C 11.1(A) 4.7 - 6.4 % [facility] HEMOGLOBIN A1C [facility] GLUCOSE, MEAN BLOOD [facility] Blood us Abstract Provider CHEMISTRY ORDERABLES Edited Re sult - Final [facility] * MAMMO SCRN BILAT 3D DAVID W OR WO CAD (09/16/2018 10:58 AM CDT) Anatomical Region Laterality Modality Breast Bilateral Mammography 09/16/2018 10:5 9 AM CDT Addenda Addendum by Donovan Rahman MD on 09/26/2018 2:13 PM CDT ADDENDUM: Outside studies made available for review dated 04/12/2014, 10/06/2010 and 06/07/2008 from [facility]. FINDINGS: The parenchymal pattern of the breasts is unchanged from the previous studies with no concerning developing dominant masses, microcalcifications or focal areas of architectural distortion. IMPRESSION: 1. No concerning developing abnormality identified. OVERALL FINAL ASSESSMENT: BI-RADS CATEGORY 1 - Negative. RECOMMENDATIONS: 1. Recommend annual mammography. Impressions 09/16/2018 12:28 PM CDT IMPRESSION: 1. Need outside films. OVERALL FINAL ASSESSMENT: BI-RADS CATEGORY 0: Incomplete, needs comparison to prior mammograms RECOMMENDATIONS: 1. Outside films will be obtained. An addendum will be dictated when these films are available. Narrative 09/16/2018 12:28 PM CDT BILATERAL SCREENING DIGITAL MAMMOGRAM WITH TOMOSYNTHESIS AND CAD DATE: 09/16/2018 10:58 AM DICTATION LOCATION: [facility] INDICATION: Routine yearly screening mammogram. TECHNIQUE: Full field digital screening mammograms of both breasts were performed. 2D and 3D acquisitions were obtained. CAD was utilized. COMPARISON: None available. BREAST COMPOSITION: Scattered fibroglandular densities. FINDINGS: Comparison will be obtained to assure stability of the parenchymal pattern. An addendum will be dictated when these films are made available. Procedure Note Donovan Rahman MD - 09/16/2018 BILATERAL SCREENING DIGITAL MAMMOGRAM WITH TOMOSYNTHESIS AND CAD DATE: 09/16/2018 10:58 AM DICTATION LOCATION: [facility] INDICATION: Routine yearly screening mammogram. TECHNIQUE: Full field digital screening mammograms of both breasts were performed. 2D and 3D acquisitions were obtained. CAD was utilized. COMPARISON: None available. BREAST COMPOSITION: Scattered fibroglandular densities. FINDINGS: Comparison will be obtained to assure stability of the parenchymal pattern. An addendum will be dictated when these films are made available. IMPRESSION: 1. Need outside films. OVERALL FINAL ASSESSMENT: BI-RADS CATEGORY 0: Incomplete, needs comparison to prior mammograms RECOMMENDATIONS: 1. Outside films will be obtained. An addendum will be dictated when these films are available. Lizzette Sanz MD MAMMO ORDERABLES Edited Result - Final from Last 3 Months or Most Recently Relevant to Health Maintenance Insurance [facility] BLUE ACCESS CHOICE Care Teams Movement Therapist Relationship Specialty Start Date End Date Rey Sol MD [address] [place] [id number] PCP - General 06/21/08
--- OUTSIDE RECORDS SUMMARY | 2024-11-06 10:49 | XMS_ITS | Clinical Summary ---
Author Organization [facility] Address [address] [place] [address] Care Team Providers Care Architect Intern Name Role Phone Rey Sol MD Primary Care Provider [phone] Allergies No known active allergies Medications metFORMIN 500 MG tablet Take 1,000 mg by mouth 2 (two) times daily with meals. 08/16/2014 Active trazodone 100 MG tablet 200 mg nightly at bedtime. 09/03/2018 Active omeprazole 20 MG capsule Take 20 mg by mouth daily. 08/17/2014 Active venlafaxine XR 150 MG 24 hr capsule 150 mg daily. 07/15/2018 Active atorvastatin 20 MG tablet Take 20 mg by mouth nightly at bedtime. 08/26/2018 Active lisinopril-hydr ochlorothiazide 10-12.5 MG tablet Take 1 tablet by mouth daily. Active dulaglutide (TRULICITY) 0.75 MG/0.5ML injection Inject 0.75 mg into the skin once a week. Active magnesium oxide 400 MG tablet Take 400 mg by mouth 2 (two) times daily. Active multi vitamin/mineral s tablet Take 1 tablet by mouth daily. Active Bioflavonoid Products (INESSA-C) Tab Take 1 tablet by mouth daily. Active calcium carbonate 1250 (500 Ca) MG tablet Take 1 tablet by mouth daily. Active Active Problems Problem Noted Date Diagnosed Date Status post left partial knee replacement 2021 Diabetes (CMS/HCC HHS/HCC) 10/31/2018 Essential hypertension 10/31/2018 Psychiatric disorder 10/31/2018 Overview (10/31/2018): Overview: depression Sepsis ([facility]) 10/30/2018 Resolved Problems Problem Noted Date Diagnosed Date Resolved Date Gastric ulcer 10/31/2018 10/31/2018 Family History Medical History Relation Comments Heart Disease Father Heart Disease Mother Relation Status Comments Father Mother Social History Tobacco Use Types Packs/Day Years Used Date Smoking Tobacco: Never Smokeless Tobacco: Never Alcohol Use Standard Drinks/Week Comments Yes 0 (1 standard drink = 0.6 oz pur e alcohol) socially Comments Unknown Sex and Gender Information Value Date Recorded Sex Assigned at Not on file Legal Sex Female 5:14 PM CDT Gender Identity Not on file Sexual Orientation Not on file Last Filed Vital Signs Vital Sign Reading Time Taken Comments Blood Pressure 124/56 10/31/2018 11:59 AM CDT Pulse 79 10/31/2018 11:59 AM CDT Temperature 36.1 C (97 F) 10/31/2018 11:59 AM CDT Respiratory Rate 20 10/31/2018 11:59 AM CDT Oxygen Saturation 98% 10/31/2018 11:59 AM CDT Inhaled Oxygen Concentration - - Weight 87.8 kg (193 lb 9 oz) 10/31/2018 5:00 AM CDT Height 165.1 cm (5' 5) 10/30/2018 9:00 PM CDT Body Mass Index 32.21 10/30/2018 9:00 PM CDT Plan of Treatment Health Maintenance Due Date Last Done Comments Colorectal Cancer Screening Colonoscopy (10 Years) 1956 Kidney Health Evaluation 1956 Hemoglobin A1C 1956 Lipid Panel 1956 Diabetes: Retinopathy Eye Exam 1974 Hepatitis C 1974 DTaP, Tdap and Td Vaccines ( 1 - Tdap) 08/03/1975 Pneumococcal Vaccine: 50+ Years (1 of 2 - PCV) 08/03/1975 Mammogram Screening 1996 Dexa Scan (General) 2021 COVID-19 Vaccine ( - 2023-2 5 season) 2023 RSV Immunization or 60+ Years (1 - 1-dose 75+ series) 08/03/2031 Zoster Vaccines Completed 06/02/2018, 01/14/2018 Meningococcal B Vaccine Aged Out No l onger eligible based on patient's age to complete this topic Meningococcal Vaccine Aged Out No inc libia eligible based on patient's age to complete this topic RSV Immunizations Under 20 Months Aged Out No longer eligible b ased on patient's age to complete this topic Insurance [facility] Advance Directives * Full Code (Latest Code Status on File) Date Activated Date Inactivated Comments 10/30/2018 9:48 PM 10/31/2018 6:26 PM Care Teams Architect Intern Relationship Specialty Start Date End Date Rey Sol MD [address] [place] [address] PCP - General FAMILY PRACTICE 10/30/18
[2024-11-06 18:10] LABS: Hematocrit 39.9 % (37.0-47.0); Hemoglobin 11.5 g/dL (12.0-15.0); Immature Granulocyte Percent A 0.5 % (0-0.5); Lymphocytes Absolute Auto 2.39 K/mm3 (0.9-3.2); Mean Corpuscular HGB Conc 28.8 g/dl (32-36); Mean Corpuscular Hemoglobin 22.7 pg (26-34); Mean Corpuscular Volume 78.7 fl (80-100); Nucleated Red Blood Cells Absolute Auto 0.000 K/mm3 (0.0-0.012); Nucleated Red Blood Cells Perc 0.0 % (0.0-0.2); Platelet Count Result 248 k/mm3 (150-375); Red Blood Count 5.07 M/mm3 (4.2-5.4); White Blood Count 8.6 K/mm3 (4.5-10.0)
[2024-11-06 18:12] LABS: Iron 29 ug/dL (37-170)
[2024-11-06 18:21] LABS: Percent Iron Saturation 7 % (20-50)
[2024-11-06 18:34] LABS: Alanine Aminotransferase 20 U/L (6-35); Albumin Level 4.3 g/dL (3.5-5.1); Alkaline Phosphatase 59 U/L (38-126); Anion Gap 8 mmol/L (4-12); Aspartate Amino Transferase 48 U/L (14-36); Bilirubin,Total 0.4 mg/dL (0.2-1.3); Blood Urea Nitrogen 12 mg/dL (7-17); Calcium 9.2 mg/dL (8.4-10.2); Carbon Dioxide 26 mmol/L (22-30); Chloride 105 mmol/L (98-107); Cholesterol 192 mg/dL (0-200); Estimated Glomerular Filt Rate > 60; Glucose 103 mg/dL (65-110); HDL Direct 57 mg/dL; Potassium 4.4 mmol/L (3.4-5.0); Sodium 139 mmol/L (137-145); Total Protein 7.2 g/dL (6.3-8.2); Triglycerides 137 mg/dL (<150)
[2024-11-06 18:50] LABS: Anisocytosis 1+; Microcytosis 1+ (NORMAL); Ovalocytes 1+
[2024-11-06 18:51] LABS: Schistocytes None Seen
[2024-11-06 18:58] LABS: Ferritin 7.17 ng/mL (11.1-264)
== END 2024-11-06 10:46 | disposition home or self-care (01) ==
LOC: ANHGOSHLAB 10:47
PROVIDERS: PCP Internal Medicine; Visit Provider Nurse Practitioner
DX: E11.65 Type 2 diabetes mellitus with hyperglycemia (principal); I10 Essential (primary) hypertension; D50.9 Iron deficiency anemia, unspecified
CPT/HCPCS: 36415; 80053; 80061; 82306; 82728; 83540; 83550; 85025

== ENCOUNTER 2024-11-26 08:06 | Outpatient (CLI) | payer BC, MEDICARE, SELFPAY ==
--- OUTSIDE RECORDS SUMMARY | 2024-11-26 08:10 | XMS_ITS | Clinical Summary ---
Author Organization [facility] Address [address] [place] [address] Care Team Providers Care Pricing Strategist Name Role Phone Rey Sol MD Primary Care Provider Allergies No known active allergies Medications metFORMIN [...] disorder 10/31/2018 Overview (10/31/2018): Overview: depression Sepsis ([facility]) 10/30/2018 Resolved Problems Problem Noted Date Diagnosed [...] this topic Meningococcal Vaccine Aged Out No nic libia eligible based on patient's age to complete this topic RSV Immunizations Under 20 Months Aged Out No longer eligible b ased on patient's age to complete this topic Insurance [facility] Advance Directives * Full Code (Latest Code Status on File) Date Activated Date Inactivated Comments 10/30/2018 9:48 PM 10/31/2018 6:26 PM Care Teams Pricing Strategist Relationship Specialty Start Date End Date Rey Sol MD [address] [place] [address] PCP - General FAMILY PRACTICE 10/30/18
--- OUTSIDE RECORDS SUMMARY | 2024-11-26 08:10 | XMS_ITS | Clinical Summary ---
Author Organization [facility] [place] Address [address] [place] [address] Phone Care Team Providers Care Steel Fabricator Name Role Phone Rey Sol MD Primary Care Provider [phone] Allergies No known active allergies Medications metFORMIN [...] Sol MD [address] [place] [address] Other: Dr. 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 FINDINGS: The parenchymal pattern of the breasts [...] Most Recently Relevant to Health Maintenance Insurance [facility] BLUE ACCESS CHOICE Care Teams Steel Fabricator Relationship Specialty Start Date End Date Rey Sol MD [address] [place] [id number] PCP - General 06/21/08
--- OUTSIDE RECORDS SUMMARY | 2024-11-26 08:10 | XMS_ITS | Encounter Summary ---
Author Organization [facility] Address [address] [facility] [place] [address] Care Team Providers Care Energy Risk Management Analyst Name Role Phone Kylie Sol MD Primary Care Provider [phone] Encounter Details Date Type Department Care Team (Late st Contact Info) Description 01/09/2019 Lab Requisition [facility] Lab [address] [facility] [place] [address] Charlene Valente MD [address] [facility] [address] [place] [address] Social History Tobacco Use Types Packs/Day Years [...] AM CDT) Case Report Dermatopathology Report Case: [id number] Authorizing Provider: Charlene Valente MD Collected: 01/08/2019 12:00 AM Ordering Location: [facility] Lab Received: 01/09/2019 01:06 PM Pathologist: Muriel Ordonez MD Specimen: Skin, left dorsal hand 9 3:33 PM CDT DERMATOPATHOLOGY LABORATORY Clinical History [place]ent[place] 9 3:33 PM CDT DERMATOPATHOLOGY LABORATORY Gross Description Specimen A: Received is one formalin filled container labeled with the patient's name and designated left dorsal hand. The specimen consists of a shave biopsy measuring 11x6x1 mm. Jar 0. [facility] Dermatopathology Laboratory performed the technical component [...] characteristic determined by the Dermatopathology Laboratory at [facility], directed by Dr. Young Ordonez. These [...] PATHOLOGY/CYTOLOGY OR DERABLES Final Result DERMATOPATHOLOGY LABORATORY [facility] - Department of Dermatology [address] [place] [address], 5th Floor Lab [address] [phone] documented in this encounter Visit Diagnoses Not on filedocumented in this encounter Care Teams Energy Risk Management Analyst Relationship Specialty Start Date End Date Kylie Sol MD [address] [place] [address] PCP - General 01/09/19 documented as of this encounter
--- OUTSIDE RECORDS SUMMARY | 2024-11-26 08:10 | XMS_ITS | Clinical Summary ---
Author Organization [facility] Address [address] [place] [address] Care Team Providers Care Hydraulic Oil Tool Operator Name Role Phone Kylie Sol MD Primary Care Provider [phone] Source Comments [facility],non[facility] Affiliates and Associated Physician Practices is amultiple site organization consisting of ambulatory clinics and hospital sitesin [place], [place], [place] and [place]. This disclosure is being madepursuant to the Care Everywhere program and may not contain all information available regarding this patient. Last updated 18.[facility] Social History Tobacco Use Types Packs/Day Years [...] this topic Insurance ANTHEM ANTHEM Care Teams Hydraulic Oil Tool Operator Relationship Specialty Start Date End Date Kylie Sol MD [address] [place] [phone] PCP - General 01/09/19
[2024-11-26 13:44] LABS: Thyroid Stimulating Hormone 1.440 uIU/mL (0.465-4.680)
[2024-11-26 13:45] LABS: Hepatitis B Surface Antigen Negative (Negative)
[2024-11-26 13:52] LABS: HIV 1/2 Ab P24 Ag Result Negative (Negative)
[2024-11-27 18:08] LABS: Deamidated Gliadin Abs, IgA 2 units (0-19); Deamidated Gliadin Abs, IgG 2 units (0-19); Immunoglobulin A, Qn 177 mg/dL (87-352)
== END 2024-11-26 08:07 | disposition home or self-care (01) ==
LOC: ANHGOSHLAB 08:07
PROVIDERS: PCP Internal Medicine; Visit Provider Nurse Practitioner
DX: R74.8 Abnormal levels of other serum enzymes (principal)
CPT/HCPCS: 36415; 82784; 84443; 86231; 86258; 86703; 86803; 87340; G0432

== ENCOUNTER 2025-01-15 00:43 | Day surgery (SDC) | payer BC, MEDICARE, SELFPAY ==
[2025-01-01 11:54] VITALS: BMI 27.1
[2025-01-15 08:50] VITALS: BP 130/63; PULSE 74; RESP 18; TEMP 36.5; O2SAT 97
[2025-01-15] MEDS: LACTATED RINGERS 1,000 ML 150 ML IV CONT (09:04)
--- NOTE | 2025-01-15 09:17 | WPDANESEPPF ---
Anes - Initial Pre Proc Eval Procedure: Operation Date: 01/15/25 10:00 Proposed Procedures p EGD & Diagnostic Colonoscopy - Judah Barahona MD Date/Time: 01/15/25 09:17 Surgeon: Judah Barahona MD Pre Op Diagnosis: Anemia, unspecified Patient Data Age: 69 Gender: F Height: 1.65 m Weight: 72.4 kg Last Vital Signs Temp 36.5 C 01/15/25 08:50 Pulse 74 01/15/25 08:50 Resp 18 01/15/25 08:50 BP 130/63 01/15/25 08:50 Pulse Ox 97 01/15/25 08:50 O2 Del Method Room Air 01/15/25 08:50 Allergies Allergy/AdvReac Type Severity Reaction Status Date / Time No Known Allergies Allergy Verified 01/15/25 08:47 Home Medications ?Medication ?Instructions ?Recorded ?Confirmed ?Type multivitamin 1 cap PO DAILY 04/13/19 01/15/25 History omeprazole 20 mg capsule,delayed 20 mg PO DAILY #90 caps 12/14/21 01/15/25 Rx release aspirin 81 mg tablet,delayed 81 mg PO DAILY 01/08/22 01/15/25 History release (Adult Low Dose Aspirin) CPAP @ 8cm of H2O with size medium #1 ea 04/30/22 10/22/24 Rx Resmed AirFit F20 full face mask, CPAP filters/tubing and heated humid blood sugar diagnostic (OneTouch #100 ea 08/12/23 10/22/24 Rx Verio test strips) blood-glucose meter (OneTouch #1 ea 08/12/23 10/22/24 Rx Verio Flex Meter) lancets 33 gauge (OneTouch Delica #100 ea 08/12/23 10/22/24 Rx Plus Lancet) pen needle, diabetic 32 gauge x #100 ea 08/12/23 10/22/24 Rx 5/32 (BD Cass 2nd Gen Pen Needle) metformin 500 mg tablet,extended 1,000 mg (2 x 500 mg) PO BID #360 04/09/24 01/15/25 Rx release 24 hr tabs nystatin 100,000 unit/gram topical 1 applic topical BID #180 grams 11/02/24 01/15/25 Rx powder dapagliflozin propanediol 10 mg 10 mg PO QAM 90 days #90 tabs 11/18/24 01/15/25 Rx tablet (Farxiga) semaglutide 2 mg/dose (8 mg/3 mL) 2 mg (0.75 mL) subcut WEEKLY 90 12/08/24 01/15/25 Rx subcutaneous pen injector (Ozempic) days #9 mL venlafaxine 150 mg 150 mg PO DAILY #90 caps 12/14/24 01/15/25 Rx capsule,extended release 24 hr (Effexor XR) atorvastatin 20 mg tablet 20 mg PO DAILY #90 tabs 12/16/24 01/15/25 Rx lisinopril 10 mg tablet 10 mg PO DAILY #90 tabs 12/16/24 01/15/25 Rx trazodone 100 mg tablet 200 mg (2 x 100 mg) PO HS #180 tabs 01/04/25 01/15/25 Rx Laboratory Tests 01/15/25 08:59 POC Capillary Glucose 112 H mg/dl (65-105) Patient hx anesthesia problems: none Family hx anesthesia problems: none Results Review: All pre-operative results and documents have been reviewed as part of the pre-operative evaluation. [facility] Past Medical History Medical History DAVID (obstructive sleep apnea) Viral upper respiratory tract infection Tinea corporis Major depressive disorder, single episode, unspecified Iron deficiency anemia, unspecified Incisional hernia, without obstruction or gangrene Hypokalemia Hypercholesterolemia Folliculitis Fatty (change of) liver, not elsewhere classified Essential hypertension Colitis Body mass index (BMI) 35 or more (06/23/18) Body mass index (BMI) 23 or greater (11/14/18) Acute non-recurrent maxillary sinusitis History of colon polyps Thyroid nodule 11-20 biopsy aspiration benign Acute medial meniscus tear of left knee Vision loss Obesity H/O: HTN (hypertension) Hearing loss Arthritis Cholelithiasis Depression History of colon polyps Pulmonary nodule Postmenopausal Type 2 diabetes mellitus Internal prolapsed hemorrhoids Hernia (~2017) High cholesterol HTN (hypertension) GERD (gastroesophageal reflux disease) Diabetes Surgical History Surgical History History of arthroplasty of left knee Partial H/O rectal polypectomy Hx of hernia repair Hx of bariatric surgery History of meniscectomy of left knee (~08/06/21) Medial (Arthroscopic) History of delivery Hx of laparoscopic gastric banding H/O hemorrhoidectomy H/O lateral meniscus repair of left knee H/O lateral meniscus repair of right knee H/O hernia repair H/O: hysterectomy History of foot surgery right foot History of hand surgery right foot Family History Family History Father Family history of elevated blood lipids Family history of heart disease in male family member before age 55 Family history of cardiovascular disease Family history of arthritis Sibling Family history of malignant neoplasm Family history of malignant neoplasm of breast in first degree relative Family history of obesity Mother Family history of atrial fibrillation Family history of malignant neoplasm of breast in first degree relative Family history of osteoarthritis Unknown Diabetes mellitus Heart disease Hypertension Cancer Grandparent Cerebrovascular accident Other Family history of juvenile rheumatoid arthritis Social History Social History Social History: The patient lives with her who recently had a stroke. They have 2 children together. She occasionally drinks socially. She is a former smoker. 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 She does not use any marijuana or illicit drugs. Her is a durable power real estate attorney for healthcare. Code status full code Caffeine-coffee Smoking packs per day: 0.5 Smoking cigarettes per day: 10.0 Years smoked: 34 Smoking pack-years: 17.00 Smoking status: Current every day smoker Tobacco type: cigarettes Smoking end date: 04/22/00 Additional smoking assessment comments: smoked 7 years ,recreational cigarette smoker Alcohol intake: current Alcohol use details: social Substance use: never Substance use type: does not use Lack of Transportation: No Lack of Food: Never True Current Housing: I Have Housing Concerned About Future Housing: No Difficulty Paying Gas/Electric Bills: No Difficulty Paying for Meds: No Currently Unemployed: No Education: High School Diploma/GED Difficulty w/ Childcare or Family Care: No Living arrangements: with family Occupation/Education: retired 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 Gender identity (if verbalized by the patient): Female Spiritual care concerns: No Agree to blood products: Yes Anes - Eval Final PreProcedure Day of Procedure 01/15/25 09:17 Patient weight: overweight Heart: regular rate and rhythm Lungs: decreased breath sounds Airway: Mallampati scale class II Neurological: alert and oriented Last oral intake: >/= 8 hours ASA classification: III Emergent: no Anesthetic plan: proceed Anesthesia type and monitoring: general GIVS and standard monitoring Results Review: All pre-operative results and documents have been reviewed as part of the pre-operative evaluation. Informed Consent: The patient's anesthetic plan and its attendant risks and benefits were discussed with the patient/family/POA. Questions were solicited and answers provided to the satisfaction of the patient/family/POA.
--- NOTE | 2025-01-15 09:31 | PM.HPGS ---
History of Present Illness History of Present Illness Consent: Risks, benefits, and alternatives have been discussed and questions answered. Patient agrees to proceed with procedure. Chief complaint: Anemia, unspecified Narrative: Avelina Kemp is a 69 year old female with history of colon polyp with last colonoscopy 2021, also gerd on ppi for over 10 years but never had egd Review of Systems Review of Systems: All systems reviewed & are unremarkable except as noted in HPI and below PMFSH Past Medical History Medical History (Updated 01/15/25 @ 09:34 by Judah Barahona MD) DAVID (obstructive sleep apnea) Viral upper respiratory tract infection Tinea corporis Major depressive disorder, single episode, unspecified Iron deficiency anemia, unspecified Incisional hernia, without obstruction or gangrene Hypokalemia Hypercholesterolemia Folliculitis Fatty (change of) liver, not elsewhere classified Essential hypertension Colitis Body mass index (BMI) 35 or more (06/23/18) Body mass index (BMI) 23 or greater (11/14/18) Acute non-recurrent maxillary sinusitis History of colon polyps Thyroid nodule 11-20 biopsy aspiration benign Acute medial meniscus tear of left knee Vision loss Obesity H/O: HTN (hypertension) Hearing loss Arthritis Cholelithiasis Depression History of colon polyps Pulmonary nodule Postmenopausal Type 2 diabetes mellitus Internal prolapsed hemorrhoids Hernia (~2017) High cholesterol HTN (hypertension) GERD (gastroesophageal reflux disease) Diabetes Surgical History Surgical History History of arthroplasty of left knee Partial H/O rectal polypectomy Hx of hernia repair Hx of bariatric surgery History of meniscectomy of left knee (~11/25/20) Medial (Arthroscopic) History of delivery Hx of laparoscopic gastric banding H/O hemorrhoidectomy H/O lateral meniscus repair of left knee H/O lateral meniscus repair of right knee H/O hernia repair H/O: hysterectomy History of foot surgery right foot History of hand surgery right foot Family History Family History Father Family history of elevated blood lipids Family history of heart disease in male family member before age 55 Family history of cardiovascular disease Family history of arthritis Sibling Family history of malignant neoplasm Family history of malignant neoplasm of breast in first degree relative Family history of obesity Mother Family history of atrial fibrillation Family history of malignant neoplasm of breast in first degree relative Family history of osteoarthritis Unknown Diabetes mellitus Heart disease Hypertension Cancer Grandparent Cerebrovascular accident Other Family history of juvenile rheumatoid arthritis Social History Social History Social History: The patient lives with her who recently had a stroke. They have 2 children together. She occasionally drinks socially. She is a former smoker. 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 She does not use any marijuana or illicit drugs. Her is a durable power semiconductor package symbol stamper for healthcare. Code status full code Caffeine-coffee Smoking packs per day: 0.5 Smoking cigarettes per day: 10.0 Years smoked: 34 Smoking pack-years: 17.00 Smoking status: Current every day smoker Tobacco type: cigarettes Smoking end date: 04/22/00 Additional smoking assessment comments: smoked 7 years ,recreational cigarette smoker Alcohol intake: current Alcohol use details: social Substance use: never Substance use type: does not use Lack of Transportation: No Lack of Food: Never True Current Housing: I Have Housing Concerned About Future Housing: No Difficulty Paying Gas/Electric Bills: No Difficulty Paying for Meds: No Currently Unemployed: No Education: High School Diploma/GED Difficulty w/ Childcare or Family Care: No Living arrangements: with family Occupation/Education: retired 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 Gender identity (if verbalized by the patient): Female Spiritual care concerns: No Agree to blood products: Yes Meds Home Medications and Allergies Home Medications ?Medication ?Instructions ?Recorded ?Confirmed ?Type multivitamin 1 cap PO DAILY 04/13/19 01/15/25 History omeprazole 20 mg capsule,delayed 20 mg PO DAILY #90 caps 12/14/21 01/15/25 Rx release aspirin 81 mg tablet,delayed 81 mg PO DAILY 01/08/22 01/15/25 History release (Adult Low Dose Aspirin) CPAP @ 8cm of H2O with size medium #1 ea 04/30/22 10/22/24 Rx Resmed AirFit F20 full face mask, CPAP filters/tubing and heated humid blood sugar diagnostic (OneTouch #100 ea 08/12/23 10/22/24 Rx Verio test strips) blood-glucose meter (OneTouch #1 ea 08/12/23 10/22/24 Rx Verio Flex Meter) lancets 33 gauge (OneTouch Delica #100 ea 08/12/23 10/22/24 Rx Plus Lancet) pen needle, diabetic 32 gauge x #100 ea 08/12/23 10/22/24 Rx 5/32 (BD Cass 2nd Gen Pen Needle) metformin 500 mg tablet,extended 1,000 mg (2 x 500 mg) PO BID #360 04/09/24 01/15/25 Rx release 24 hr tabs nystatin 100,000 unit/gram topical 1 applic topical BID #180 grams 11/02/24 01/15/25 Rx powder dapagliflozin propanediol 10 mg 10 mg PO QAM 90 days #90 tabs 11/18/24 01/15/25 Rx tablet (Farxiga) semaglutide 2 mg/dose (8 mg/3 mL) 2 mg (0.75 mL) subcut WEEKLY 90 12/08/24 01/15/25 Rx subcutaneous pen injector (Ozempic) days #9 mL venlafaxine 150 mg 150 mg PO DAILY #90 caps 12/14/24 01/15/25 Rx capsule,extended release 24 hr (Effexor XR) atorvastatin 20 mg tablet 20 mg PO DAILY #90 tabs 12/16/24 01/15/25 Rx lisinopril 10 mg tablet 10 mg PO DAILY #90 tabs 12/16/24 01/15/25 Rx trazodone 100 mg tablet 200 mg (2 x 100 mg) PO HS #180 tabs 01/04/25 01/15/25 Rx Allergies Allergy/AdvReac Type Severity Reaction Status Date / Time No Known Allergies Allergy Verified 01/15/25 08:47 Vital Signs Vital Signs - 24 hr 01/15/25 08:50 Temperature 97.7 F Pulse Rate 74 Respiratory Rate 18 Blood Pressure 130/63 Pulse Oximetry 97 Oxygen Delivery Room Air Exam Const: General: comfortable and no acute distress HENMT: Face/Nose/Sinus: Normal nares present Eyes: General: appearance normal, both eyes and all related structures Resp: Auscultation: clear to auscultation bilaterally Cardio: Rate: regular rate Rhythm: regular rhythm GI: Inspection: non-distended GI Palp: Yes Soft to palpation Skin: General skin exam: normal color Neuro: Speech: normal speech Extrem: General: normal to inspection Psych: Mental Status: mental status grossly normal Assessment and Plan Assessment and plan (1) GERD (gastroesophageal reflux disease): Code(s): K21.9 - Gastro-esophageal reflux disease without esophagitis Status: Acute Assessment and Plan: egd (2) History of colon polyps: Code(s): Z86.010 - Personal history of colon polyps Status: Acute Assessment and Plan: colonoscopy
--- NOTE | 2025-01-15 09:45 | SUR.OPER ---
EGD TIME 8638-0716, COLONOSCOPY START TIME 945
--- NOTE | 2025-01-15 09:46 | S_PTH ---
PATIENT: Avelina Kemp LOC: [facility] Espitia#:[id number] AGE/SX: 69/F ROOM: RE01/15/[address]: Judah Barahona MD : 1955 BED: DIS: 01/15/2025 SPEC #: [id number] RECD: 01/15/25 10:20 STATUS: HUSSEIN REBobby #: [id number] DAYANA: 01/15/25 09:[address]: Judah Barahona DEPT: [facility] Surgical RECD BY: Kalpana Snider ENTERED: 01/15/25 10:20 SP TYPE: Surgical OTHR DR: Munir Velazquez DO Tissues: A - Gastric Biopsy Procedures: Hematoxylin and Eosin Stain Gross and Microscopic Level 4
[2025-01-15 10:00] VITALS: BP 110/66; PULSE 69; RESP 20; O2SAT 99
[2025-01-15 10:05] VITALS: BP 110/60; PULSE 84; RESP 26; O2SAT 100
[2025-01-15 10:10] VITALS: BP 123/63; PULSE 64; RESP 16; O2SAT 99
== END 2025-01-15 10:30 | disposition home or self-care (01) ==
PROVIDERS: PCP Internal Medicine; Referring Provider Nurse Practitioner; Visit Provider Internal Medicine Gastroenterology
PROC: 0DJ08ZZ Inspection of Upper Intestinal Tract, Via Natural or Artificial Opening Endoscopic (ICD-10-PCS; CPT 45378; principal; 2025-01-15 10:00)
DX: Z12.11 Encounter for screening for malignant neoplasm of colon (principal); K64.8 Other hemorrhoids; K57.30 Diverticulosis of large intestine without perforation or abscess without bleeding; K44.9 Diaphragmatic hernia without obstruction or gangrene; K21.9 Gastro-esophageal reflux disease without esophagitis; I10 Essential (primary) hypertension; E11.9 Type 2 diabetes mellitus without complications; G47.33 Obstructive sleep apnea (adult) (pediatric); D50.9 Iron deficiency anemia, unspecified; E87.6 Hypokalemia; E78.00 Pure hypercholesterolemia, unspecified; F32.A Depression, unspecified; F32.9 Major depressive disorder, single episode, unspecified; M19.90 Unspecified osteoarthritis, unspecified site; Z79.82 Long term (current) use of aspirin; Z79.84 Long term (current) use of oral hypoglycemic drugs; Z79.85 Long-term (current) use of injectable non-insulin antidiabetic drugs; Z99.89 Dependence on other enabling machines and devices; Z98.890 Other specified postprocedural states; Z98.84 Bariatric surgery status; Z87.891 Personal history of nicotine dependence; Z86.0100 Personal history of colon polyps, unspecified; Z87.19 Personal history of other diseases of the digestive system; Z80.3 Family history of malignant neoplasm of breast; Z82.49 Family history of ischemic heart disease and other diseases of the circulatory system
CPT/HCPCS: 43239; 45378; 82948; 88305; J2003; J2704; J7120

== ENCOUNTER 2025-02-01 10:26 | Outpatient (CLI) | payer BC, MEDICARE, SELFPAY ==
--- NOTE | ~2025-02-01 | US_ITS ---
ULTRASOUND ABDOMEN LIMITED (RIGHT UPPER QUADRANT) Clinical History: R74.8 - Abnormal levels of other serum enzymes Comparison: None Technique: Right upper quadrant sonography Findings: Liver: Enlarged. Mild steatosis. No intrahepatic biliary ductal dilatation. Normal hepatopedal flow main portal vein. Common Duct: Normal caliber. 3 mm. Gallbladder: Stones. No wall thickening. No pericholecystic fluid. Negative sonographic Torres's sign per technologist report. Pancreas: Visualized portions unremarkable. Right kidney: Unremarkable. Retrohepatic IVC: Unremarkable. IMPRESSION: 1. No acute findings. 2. Hepatomegaly, with steatosis and/or hepatocellular disease. 3. Cholelithiasis. Reviewed, dictated and finalized at location R.
== END 2025-02-01 10:27 | disposition home or self-care (01) ==
LOC: GOSHIMG 10:27
PROVIDERS: PCP Nurse Practitioner Family; Visit Provider Nurse Practitioner
DX: R74.8 Abnormal levels of other serum enzymes (principal); E04.1 Nontoxic single thyroid nodule; K80.20 Calculus of gallbladder without cholecystitis without obstruction
CPT/HCPCS: 76705

== ENCOUNTER 2025-02-01 10:28 | Outpatient (CLI) | payer BC, MEDICARE, SELFPAY ==
--- NOTE | ~2025-02-01 | US_ITS ---
EXAMINATION: US thyroid DATE: 02/01/2025 11:03 INDICATION: Nontoxic single thyroid nodule. TECHNIQUE: Multiple ultrasound images of the thyroid were obtained. COMPARISON: Ultrasound 10/13/2021, chest CT 05/14/2022 FINDINGS: The right thyroid lobe measures 3.7 x 1.5 x 1.2 cm. The left thyroid lobe measures 3.9 x 1.4 x 1.6 cm. In the right thyroid lobe, there is a 4 mm nodule. IMPRESSION: 1. Small thyroid nodule, likely benign. No follow-up is needed. 2. The portion of the thyroid in the superior mediastinum seen on the prior chest CT was not imaged. Reviewed, dictated and finalized at location E. IMPRESSION: 1. Small thyroid nodule, likely benign. No follow-up is needed. 2. The portion of the thyroid in the superior mediastinum seen on the prior [address]aim[address] st CT was not imaged.
== END 2025-02-01 10:29 | disposition home or self-care (01) ==
LOC: GOSHIMG 10:28
PROVIDERS: PCP Nurse Practitioner Family; Visit Provider Nurse Practitioner Family
DX: E04.1 Nontoxic single thyroid nodule (principal)
CPT/HCPCS: 76536